=== PATIENT | female | born 1970 | race Caucasian/White ===

== ENCOUNTER 2016-09-14 09:02 | Emergency (ER) | payer OTHER ==
[~2016-09-14] VITALS: Ht 170.2 cm; Wt 110.1 kg
[~2016-09-14 09:02] MED LIST: ABILIFY15 MG PO; ACCUNEB1.25 MG/3 IH; ADIPEX-P37.5 M1 PO; ADVAIR 100-501 EACH IH; ADVAIR 250/501 DISK IH; ADVAIR HFA120 INHALA IH; ALPRAZOLAM1 MG PO; AMBIEN10 MG PO; AMBIEN5 MG PO; AMITRIPTYLINE H25 MG PO; AMOX TR-K CLV1 EAC4 PO; AMOXIL500 MG PO; ANAPROX DS550 M1 PO; ANORO ELLIPTA1 EACH IH; ANTI-DIARRHEA2 MG PO; AUGMENTIN875 MG PO; BACTROBAN OINTM22 GM TP; BELSOMRA20 MG PO; BENTYL10 MG PO; BENZONATATE100 MG PO; BREO ELLIPTA I1 EACH IH; BUPROPION XL150 MG PO; BYSTOLIC5 MG PO; CARAFATE100 MG/ML PO; CELEXA40 MG PO; CETIRIZINE HCL10 M2 PO; CHANTIX1 EACH PO; CHANTIX1 MG PO; CHERATUSSIN AC473 ML PO; CHEWABLE-VITE1 EACH PO; CIPRO500 MG PO; CLEAR EYES ITCH15 ML BOTH EYES; CYCLOBENZAPRINE10 MG PO; DELTASONE1 MG PO; DELTASONE20 M1 PO; DICYCLOMINE HCL10 MG PO; DUONEB 2.5-0.5 M3 ML AEROSOL; ENDOCET 5-3251 EACH PO; ESTRADIOL1 EA12 TD; FLAGYL500 MG PO; FLONASE16 G1 BOTH NARES; FLOVENT 11120 INHALA IH; FLUCONAZOLE100 MG PO; GABAPENTIN300 MG PO; HYDROCHLOROTH12.5 M3 PO; HYDROCODON-ACE1 EAC7 PO; IMODIUM PO; LEVAQUIN500 MG PO; LIDODERM 5% P1 PATCH TD; LOMOTIL TABLET1 EACH PO; LORTAB 5-325 M1 EACH PO; LORTAB 5-500 T1 EACH PO; LOTRIMIN AF SP150 GM TP; LYRICA150 MG PO; LYRICA50 MG PO; LYRICA75 MG PO; Levaquin PO; MEDROL DOSEPAK4 MG PO; MELATONIN5 M1 PO; METHOCARBAMOL750 MG PO; METOCLOPRAMIDE HCL; METOCLOPRAMIDE10 MG PO; MICROZIDE12.5 M1 PO; MIRAPEX1 MG PO; MORPHINE SULFAT15 MG PO; MUPIROCIN22 GM TP; MYCOSTATIN 100,60 ML PO; NAPROSYN500 MG PO; NAPROXEN500 M1 PO; NAPROXEN500 MG PO; NATURAL BALANCE15 ML BOTH EYES; NICODERM CQ1 EAC2 TD; NICOTINE PATCH1 EAC2 TD; NYSTATIN100000 UN1 PO; NYSTATIN15 GM TP; ONDANSETRON4 MG/2 ML IV; OXYCODONE HCL5 MG PO; OXYCODONE-APAP1 EACH PO; PERCOCET 5/31 TABLET PO; PERCOCET 7.51 TABLET PO; PREDNISONE10 MG PO; PREDNISONE20 MG PO; PREDNISONE50 MG PO; PRILOSEC40 MG PO; PROAIR HFA8.5 GM IH; PROMETHAZINE HC25 M1 PO; PROTONIX40 MG PO; PROVENTIL,2.5 MG/3 M IH; QUETIAPINE; QUETIAPINE FUM100 MG PO; QUETIAPINE FUM300 MG PO; RANITIDINE HCL150 MG PO; RITALIN10 MG PO; ROBAXIN750 MG PO; ROBITUSSIN AC,T10 ML PO; SEROQUEL100 MG PO; SEROQUEL200 MG PO; SOMA350 MG PO; SONATA10 MG PO; SPIRIVA RESPIMAT4 GM IH; SPIRIVA1 INHALATI IH; TESSALON PERLE100 MG PO; TOPROL XL25 MG PO; TUSSIN15 MG/5 M1 PO; TUSSIONEX PENN473 ML PO; TYLENOL WITH C1 EACH PO; Ultram PO; VIBERZI75 MG PO; VIBRAMYCIN100 MG PO; VICODIN,LORT1 TABLET PO; WELLBUTRIN XL150 MG PO; XANAX1 MG PO; XANAX2 MG PO; ZALEPLON10 MG PO; ZANAFLEX4 MG PO; ZOFRAN ODT4 MG PO; ZOFRAN4 MG PO; ZOLPIDEM TARTRA10 MG PO
[2016-09-14 09:31] LABS: EOSINOPHIL (%) 0.9 % (0-5); EOSINOPHIL COUNT 0.1 K/uL (0-0.3); HEMATOCRIT 38.1 % (36.0-46.0); IMMATURE GRANULOCYTE (%) 0.3 % (0.0-0.7); IMMATURE GRANULOCYTE COUNT 0.3 K/uL; LYMPHOCYTE COUNT 1.6 K/uL (1.0-2.8); MCH 26.4 PG (29.0-34.0); MCV 82.5 FL (83-99); MEAN PLAT.VOLUME 8.9 uM^3 (9.5-12.4); MONOCYTE (%) 3.6 % (3-12); MONOCYTE COUNT 0.4 K/uL (0-0.8); NEUTROPHIL COUNT 8.4 K/uL (1.8-6.4); PLATELET COUNT 357 K/uL (156-360); RBC DIS.WIDTH-CV 14.5 % (11.8-14.6); RBC DIS.WIDTH-SD 42.3 % (39-53); RED BLOOD COUNT 4.62 M/uL (3.80-5.20); WHITE BLOOD COUNT 10.4 K/uL (4.1-10.2)
[2016-09-14 09:40] LABS: CHLORIDE 101 mEq/L (99-109); SODIUM 135 mEq/L (136-147)
[2016-09-14 09:42] LABS: GLUCOSE 162 mg/dL (70-99)
[2016-09-14 09:43] LABS: ANION GAP 13 MEQ/L (2-14)
[2016-09-14 09:46] LABS: GFR ESTIMATE (CALCULATED) > 59 mL/min/; UREA NITROGEN (BUN) 7 mg/dL (9-23)
[2016-09-14] MEDS ORDERED: ROBITUSSIN AC,T10 ML PO (11:16)
[2016-09-14] MEDS ORDERED: CEFTIN500 MG PO (11:16)
[2016-09-14 11:22] VITALS: BP 128/89
== END 2016-09-14 11:23 | disposition home or self-care (01) ==
LOC: EME 09:02
PROVIDERS: Emergency Medicine
DX: J44.1 Chronic obstructive pulmonary disease with (acute) exacerbation (principal); J20.9 Acute bronchitis, unspecified; G89.29 Other chronic pain; F17.200 Nicotine dependence, unspecified, uncomplicated
CPT/HCPCS: 71020; 80048; 85025; 94640; 99281; 99285

== ENCOUNTER 2016-10-07 19:11 | Emergency (ER) | payer OTHER ==
[~2016-10-07] VITALS: Ht 170.2 cm; Wt 108.3 kg
[~2016-10-07 19:11] MED LIST changes: +CEFTIN500 MG PO
[2016-10-07 19:58] LABS: HEMATOCRIT 38.2 % (36.0-46.0); MCH 26.9 PG (29.0-34.0); MCHC 33.2 G/DL (30.0-36.0); MCV 80.9 FL (83-99); PLATELET COUNT 434 K/uL (156-360); RBC DIS.WIDTH-CV 14.8 % (11.8-14.6); RBC DIS.WIDTH-SD 42.4 % (39-53); RED BLOOD COUNT 4.72 M/uL (3.80-5.20)
[2016-10-07 20:03] LABS: WHITE BLOOD COUNT 16.1 K/uL (4.1-10.2)
[2016-10-07 20:09] LABS: CHLORIDE 99 mEq/L (99-109); POTASSIUM 3.7 mEq/L (3.7-5.4); SODIUM 134 mEq/L (136-147)
[2016-10-07 20:12] LABS: GLUCOSE 133 mg/dL (70-99)
[2016-10-07 20:13] LABS: ANION GAP 10 MEQ/L (2-14); TOTAL BILIRUBIN 0.2 mg/dL (0.0-1.0)
[2016-10-07 20:15] LABS: ALKALINE PHOSPHATASE 131 IU/L (3-129); GFR ESTIMATE (CALCULATED) > 59 mL/min/
[2016-10-07 20:16] LABS: UREA NITROGEN (BUN) 10 mg/dL (9-23)
[2016-10-07 20:24] LABS: QUANTITATIVE HCG < 4.0 MIU/ML
[2016-10-07 20:24] LABS: ADD MIUA? NO; BILIRUBIN NEGATIVE; BLOOD NEGATIVE; COLOR YELLOW ((YELLOW)); GLUCOSE (STRIP) NEGATIVE; KETONES NEGATIVE; LEUKOCYTES NEGATIVE; NITRITE NEGATIVE; PH, URINE 6.5 (5-8); PROTEIN (STRIP) NEGATIVE; SPECIFIC GRAVITY 1.006 (1.000-1.030); UCUL ADDED? NO; UROBILINOGEN 0.2 MG/DL (0.2-1.0)
[2016-10-07 23:01] LABS: LIPASE 25 U/L (1.0-51.0)
[2016-10-08] MEDS ORDERED: ZOFRAN4 MG PO (01:51)
[2016-10-08 02:06] VITALS: BP 151/87
== END 2016-10-08 02:09 | disposition home or self-care (01) ==
LOC: EME 19:11
DX: R10.31 Right lower quadrant pain (principal); J44.9 Chronic obstructive pulmonary disease, unspecified; K21.9 Gastro-esophageal reflux disease without esophagitis; I10 Essential (primary) hypertension; F17.200 Nicotine dependence, unspecified, uncomplicated
CPT/HCPCS: 74177; 80053; 81003; 83690; 84702; 85027; 99281; 99285; J1170; J1200; J2270; J2405; J7030

== ENCOUNTER 2016-10-31 11:56 | Inpatient (IN) | payer OTHER ==
[~2016-10-31] VITALS: Ht 170.2 cm; Wt 109.0 kg
[2016-10-31 13:28] LABS: INFLUENZA A VIRAL ANTIGEN NEGATIVE; INFLUENZA B VIRAL ANTIGEN NEGATIVE
[2016-10-31 13:32] LABS: HEMATOCRIT 37.4 % (36.0-46.0); MCH 27.1 PG (29.0-34.0); MCHC 33.4 G/DL (30.0-36.0); MEAN PLAT.VOLUME 9.1 uM^3 (9.5-12.4); PLATELET COUNT 319 K/uL (156-360); RBC DIS.WIDTH-CV 15.1 % (11.8-14.6); RED BLOOD COUNT 4.62 M/uL (3.80-5.20); WHITE BLOOD COUNT 15.3 K/uL (4.1-10.2)
[2016-10-31 13:47] LABS: CHLORIDE 100 mEq/L (99-109); POTASSIUM 4.2 mEq/L (3.7-5.4); SODIUM 136 mEq/L (136-147)
[2016-10-31 13:48] LABS: GLUCOSE 128 mg/dL (70-99)
[2016-10-31 13:50] LABS: ANION GAP 14 MEQ/L (2-14)
[2016-10-31 13:52] LABS: GFR ESTIMATE (CALCULATED) > 59 mL/min/
[2016-10-31 13:53] LABS: UREA NITROGEN (BUN) 6 mg/dL (9-23)
[2016-10-31] MEDS ORDERED: QUETIAPINE FUM200 MG PO (15:34)
[2016-10-31] MEDS ORDERED: COMBIVENT RESPIM4 GM IH (15:35)
[2016-10-31] MEDS ORDERED: BENZONATATE100 MG PO (15:37)
[2016-10-31] MEDS ORDERED: RIZATRIPTAN5 M1 PO (15:40)
[2016-10-31] MEDS ORDERED: FENTANYL1 EAC5 TD (15:40)
[2016-10-31] MEDS ORDERED: ARTIFICIAL TEAR15 M1 BOTH EYES (15:41)
[2016-10-31] MEDS ORDERED: ONE DAILY FOR1 EAC1 PO (15:42)
[2016-10-31 18:55] VITALS: BP 133/69
[2016-10-31 23:23] VITALS: BP 124/64
[2016-11-01 07:45] LABS: MCH 27.5 PG (29.0-34.0); MCV 83.5 FL (83-99); MEAN PLAT.VOLUME 9.4 uM^3 (9.5-12.4); PLATELET COUNT 330 K/uL (156-360); RBC DIS.WIDTH-SD 46.2 % (39-53); RED BLOOD COUNT 4.43 M/uL (3.80-5.20); WHITE BLOOD COUNT 19.7 K/uL (4.1-10.2)
[2016-11-01 07:59] VITALS: BP 129/72
[2016-11-01 08:00] LABS: POINT-OF-CARE METER ID UU14188625
[2016-11-01 08:11] LABS: ANION GAP 10 MEQ/L (2-14); CHLORIDE 98 MEQ/L (99-109); GFR ESTIMATE (CALCULATED) > 59 mL/min/; GLUCOSE 247 mg/dL (70-99); POTASSIUM 4.4 MEQ/L (3.7-5.4); SAMPLE HEMOLYSIS CHECK 0; SAMPLE ICTERIC CHECK 0; SAMPLE LIPEMIA CHECK 0; SODIUM 133 MEQ/L (136-147); UREA NITROGEN (BUN) 11 mg/dL (9-23)
[2016-11-01 11:57] LABS: POINT-OF-CARE METER ID UU14174225
[2016-11-01 12:48] VITALS: BP 130/73
[2016-11-01 16:28] VITALS: BP 126/69
[2016-11-01 20:00] VITALS: BP 127/67
[2016-11-02] VITALS: BP 129/65
[2016-11-02 04:00] VITALS: BP 124/64
[2016-11-02 08:00] LABS: POINT-OF-CARE METER ID UU14188625
[2016-11-02 08:09] VITALS: BP 127/72
[2016-11-02 11:59] LABS: POINT-OF-CARE METER ID UU14188625
[2016-11-02 12:16] VITALS: BP 153/80
[2016-11-02 16:14] VITALS: BP 136/76
[2016-11-02 16:53] LABS: POINT-OF-CARE METER ID UU14188625
[2016-11-02 20:00] VITALS: BP 157/74
[2016-11-02 22:42] LABS: POINT-OF-CARE METER ID UU14174225
[2016-11-03] VITALS: BP 116/63
[2016-11-03 03:45] VITALS: BP 140/91
[2016-11-03 07:41] VITALS: BP 121/75
[2016-11-03 08:28] LABS: POINT-OF-CARE METER ID UU14174225
[2016-11-03 10:40] VITALS: BP 149/95
[2016-11-03 15:56] VITALS: BP 154/81
[2016-11-03 16:39] LABS: POINT-OF-CARE METER ID UU14174225
[2016-11-03 19:30] VITALS: BP 138/82
[2016-11-04 00:18] VITALS: BP 114/65
[2016-11-04 04:00] VITALS: BP 115/77
[2016-11-04 08:33] VITALS: BP 147/79
[2016-11-04 11:50] VITALS: BP 160/90
[2016-11-04 14:56] VITALS: BP 160/75
[2016-11-04] MEDS ORDERED: ADVAIR HFA120 INHALA IH (16:28)
[2016-11-04 16:29] LABS: POINT-OF-CARE METER ID UU14174225
[2016-11-04] MEDS ORDERED: METFORMIN HCL500 M4 PO (16:31)
[2016-11-04] MEDS ORDERED: FENTANYL1 EAC1 TD (16:31)
[2016-11-04] MEDS ORDERED: PREDNISONE10 MG PO (16:31)
[2016-11-04] MEDS ORDERED: ENDOCET 5-3251 EACH PO (16:31)
[2016-11-04] MEDS ORDERED: DOXYCYCLINE HY100 M3 PO (16:44)
== END 2016-11-04 17:15 | disposition home health service (06) | DRG 192 ==
LOC: RME 11:56 → EME 11:56 → 5SOUTH 15:04 → EDOF 15:04 → 5SOUTH 17:29
PROVIDERS: Hospitalist; Internal Medicine
DX: J44.1 Chronic obstructive pulmonary disease with (acute) exacerbation (principal); E11.65 Type 2 diabetes mellitus with hyperglycemia; Z99.81 Dependence on supplemental oxygen; M79.7 Fibromyalgia; G89.4 Chronic pain syndrome; F17.210 Nicotine dependence, cigarettes, uncomplicated; M19.90 Unspecified osteoarthritis, unspecified site; K21.9 Gastro-esophageal reflux disease without esophagitis; I10 Essential (primary) hypertension; E78.5 Hyperlipidemia, unspecified; F32.9 Major depressive disorder, single episode, unspecified; F41.9 Anxiety disorder, unspecified; E66.9 Obesity, unspecified; G47.33 Obstructive sleep apnea (adult) (pediatric); K27.9 Peptic ulcer, site unspecified, unspecified as acute or chronic, without hemorrhage or perforation; G25.81 Restless legs syndrome; K58.9 Irritable bowel syndrome, unspecified
CPT/HCPCS: 71020; 80048; 82948; 85027; 87502; 93005; 94640; 94640 76; 94799; 99202; 99281; 99285; J0696; J1100; J1644; J1815; J2270; J2405; J2930; J7030; J7050

== ENCOUNTER 2016-11-11 19:44 | Emergency (ER) | payer OTHER ==
[~2016-11-11] VITALS: Ht 170.2 cm; Wt 107.7 kg
[~2016-11-11 19:44] MED LIST changes: +ARTIFICIAL TEAR15 M1 BOTH EYES; +COMBIVENT RESPIM4 GM IH; +DOXYCYCLINE HY100 M3 PO; +FENTANYL1 EAC1 TD; +FENTANYL1 EAC5 TD; +METFORMIN HCL500 M4 PO; +ONE DAILY FOR1 EAC1 PO; +QUETIAPINE FUM200 MG PO; +RIZATRIPTAN5 M1 PO
[2016-11-11 20:46] LABS: HEMATOCRIT 41.5 % (36.0-46.0); MCHC 32.8 G/DL (30.0-36.0); MCV 82.3 FL (83-99); MEAN PLAT.VOLUME 10.3 uM^3 (9.5-12.4); RBC DIS.WIDTH-CV 15.7 % (11.8-14.6); RBC DIS.WIDTH-SD 46.3 % (39-53); RED BLOOD COUNT 5.04 M/uL (3.80-5.20); WHITE BLOOD COUNT 18.7 K/uL (4.1-10.2)
[2016-11-11 20:47] LABS: PLATELET COUNT 459 K/uL (156-360)
[2016-11-11 20:58] LABS: TROP-I INTERPRETATION NEGATIVE; TROPONIN-I < 0.01 ng/mL (0.0-0.30)
[2016-11-11 21:07] LABS: CHLORIDE 101 mEq/L (99-109); POTASSIUM 4.5 mEq/L (3.7-5.4); SODIUM 138 mEq/L (136-147)
[2016-11-11 21:08] LABS: GLUCOSE 152 mg/dL (70-99)
[2016-11-11 21:10] LABS: ANION GAP 15 MEQ/L (2-14)
[2016-11-11 21:12] LABS: GFR ESTIMATE (CALCULATED) 51 mL/min/
[2016-11-11 21:13] LABS: UREA NITROGEN (BUN) 17 mg/dL (9-23)
[2016-11-11 22:32] LABS: D-DIMER ELISA < 0.15 mg/L FEU (< 0.57)
[2016-11-11 22:59] VITALS: BP 122/86
[2016-11-12] MEDS ORDERED: DOXYCYCLINE HY100 M3 PO (14:07)
[2016-11-12] MEDS ORDERED: NYSTATIN15 GM TP (14:19)
[2016-11-12] MEDS ORDERED: CETIRIZINE HCL10 M2 PO (14:35)
== END 2016-11-11 23:39 | disposition home or self-care (01) ==
LOC: EME 19:44
PROVIDERS: Emergency Medicine; Physician Assistant
DX: J44.0 Chronic obstructive pulmonary disease with (acute) lower respiratory infection (principal); J20.9 Acute bronchitis, unspecified; J44.1 Chronic obstructive pulmonary disease with (acute) exacerbation; J45.909 Unspecified asthma, uncomplicated; E11.9 Type 2 diabetes mellitus without complications; M79.7 Fibromyalgia; I10 Essential (primary) hypertension; K21.9 Gastro-esophageal reflux disease without esophagitis; F17.200 Nicotine dependence, unspecified, uncomplicated
CPT/HCPCS: 71020; 80048; 84484; 85027; 85379; 93005; 94640; 94644; 99281; 99285; J2930

== ENCOUNTER 2016-11-12 11:11 | Observation (INO) | payer OTHER ==
[~2016-11-12] VITALS: Ht 170.2 cm; Wt 115.1 kg
[2016-11-12 12:19] LABS: CARBON DIOXIDE (BICARBONATE) 23.5 MEQ/L (20-31); HEMATOCRIT 37.8 % (36.0-46.0); MCH 26.8 PG (29.0-34.0); MCHC 32.3 G/DL (30.0-36.0); MCV 82.9 FL (83-99); MEAN PLAT.VOLUME 9.3 uM^3 (9.5-12.4); PLATELET COUNT 354 K/uL (156-360); RBC DIS.WIDTH-CV 15.5 % (11.8-14.6); RBC DIS.WIDTH-SD 46.5 % (39-53); RED BLOOD COUNT 4.56 M/uL (3.80-5.20)
[2016-11-12 12:24] LABS: ADD MIUA? NO; BILIRUBIN NEGATIVE; BLOOD NEGATIVE; COLOR STRAW ((YELLOW)); GLUCOSE (STRIP) >=500; KETONES NEGATIVE; LEUKOCYTES NEGATIVE; NITRITE NEGATIVE; PROTEIN (STRIP) NEGATIVE; SPECIFIC GRAVITY 1.012 (1.000-1.030); UCUL ADDED? NO; UROBILINOGEN 0.2 MG/DL (0.2-1.0)
[2016-11-12 12:40] LABS: AMPHETAMINE NEGATIVE (500 ng/mL); BARBITURATES NEGATIVE (200 ng/mL); BENZODIAZEPINES PRESUMPTIVE POSITIVE (150 ng/mL); COCAINE NEGATIVE (150 ng/mL); INTERNAL CONTROLS VALID? YES; METHADONE NEGATIVE (200 ng/mL); METHAMPHETAMINE NEGATIVE (500 ng/mL); OPIATES (MORPHINE) PRESUMPTIVE POSITIVE (100 ng/mL); OXYCODONE NEGATIVE (100 ng/mL); PHENCYCLIDINE NEGATIVE (25 ng/mL); PROPOXYPHENE NEGATIVE (300 ng/mL); THC CANNABINOIDS PRESUMPTIVE POSITIVE (50 ng/mL); TRICYCLIC ANTIDEPRESSANTS NEGATIVE (300 ng/mL)
[2016-11-12 12:41] LABS: ADD MEDTOX COMMENT Y
[2016-11-12 12:44] LABS: BASOPHIL COUNT 0.1 K/uL (0-0.1); EOSINOPHIL (%) 0 % (0-5); IMMATURE GRANULOCYTE (%) 2.5 % (0.0-0.7); IMMATURE GRANULOCYTE COUNT 0.7 K/uL; INSTRUMENT ABS NEUTROPHIL CT 23.9 K/uL; LYMPHOCYTE COUNT 1.4 K/uL (1.0-2.8); MONOCYTE (%) 3.9 % (3-12); NEUTROPHIL (%) 88.3 % (45-76); NEUTROPHIL COUNT 23.9 K/uL (1.8-6.4)
[2016-11-12 12:51] LABS: ALKALINE PHOSPHATASE 123 IU/L (3-129); ANION GAP 14 MEQ/L (2-14); CHLORIDE 99 MEQ/L (99-109); GFR ESTIMATE (CALCULATED) > 59 mL/min/; LIPASE 12 U/L (1.0-51.0); POTASSIUM 4.7 MEQ/L (3.7-5.4); SAMPLE HEMOLYSIS CHECK 0; SAMPLE ICTERIC CHECK 0; SAMPLE LIPEMIA CHECK 0; SODIUM 134 MEQ/L (136-147); TOTAL BILIRUBIN 0.3 MG/DL (0.0-1.0); UREA NITROGEN (BUN) 18 mg/dL (9-23)
[2016-11-12 13:10] LABS: GLUCOSE 267 mg/dL (70-99)
[2016-11-12 13:11] LABS: TROP-I INTERPRETATION NEGATIVE; TROPONIN-I < 0.01 ng/mL (0.0-0.30)
[2016-11-12 13:23] LABS: BENZODIAZEPINES, URINE SCREEN POSITIVE (200 ng/mL)
[2016-11-12] MEDS ORDERED: DOXYCYCLINE HY100 M3 PO (14:07)
[2016-11-12 14:09] LABS: POINT-OF-CARE METER ID UU13113702
[2016-11-12] MEDS ORDERED: NYSTATIN15 GM TP (14:19)
[2016-11-12 14:34] LABS: INFLUENZA A VIRAL ANTIGEN NEGATIVE; INFLUENZA B VIRAL ANTIGEN NEGATIVE
[2016-11-12] MEDS ORDERED: CETIRIZINE HCL10 M2 PO (14:35)
[2016-11-12 16:33] VITALS: BP 106/62
[2016-11-12 17:38] LABS: POINT-OF-CARE METER ID UU13113831
[2016-11-12 19:34] LABS: TROP-I INTERPRETATION NEGATIVE; TROPONIN-I < 0.01 ng/mL (0.0-0.30)
[2016-11-12 19:43] VITALS: BP 125/60
[2016-11-14 08:02] LABS: POINT-OF-CARE METER ID UU13113702
== END 2016-11-12 21:45 | disposition left against medical advice (07) ==
LOC: EME → EDBD 11:11 → EDOF 14:03 → 5WEST 16:08
PROVIDERS: Emergency Medicine; Internal Medicine; Physician Assistant
DX: R07.89 Other chest pain (principal); R05 Cough; E11.65 Type 2 diabetes mellitus with hyperglycemia; J44.9 Chronic obstructive pulmonary disease, unspecified; I10 Essential (primary) hypertension; E78.5 Hyperlipidemia, unspecified; M79.7 Fibromyalgia; F41.9 Anxiety disorder, unspecified; F32.9 Major depressive disorder, single episode, unspecified; F17.200 Nicotine dependence, unspecified, uncomplicated
CPT/HCPCS: 71010; 80048; 80076; 81003; 82803; 82948; 83690; 84484; 84999; 85025; 87502; 93005; 94640; 99281; 99285; G0378; J1644; J2270; J2405; J7030

== ENCOUNTER 2016-12-08 10:26 | Emergency (ER) | payer OTHER ==
[~2016-12-08] VITALS: Ht 170.2 cm; Wt 106.5 kg
[2016-12-08 11:16] LABS: HEMATOCRIT 40.6 % (36.0-46.0); MCH 27.3 PG (29.0-34.0); MCHC 32.8 G/DL (30.0-36.0); MCV 83.2 FL (83-99); MEAN PLAT.VOLUME 9.1 uM^3 (9.5-12.4); PLATELET COUNT 363 K/uL (156-360); RBC DIS.WIDTH-CV 15.2 % (11.8-14.6); RBC DIS.WIDTH-SD 46.1 % (39-53); RED BLOOD COUNT 4.88 M/uL (3.80-5.20); WHITE BLOOD COUNT 14.5 K/uL (4.1-10.2)
[2016-12-08 11:19] LABS: CHLORIDE 99 mEq/L (99-109); SODIUM 136 mEq/L (136-147)
[2016-12-08 11:21] LABS: GLUCOSE 112 mg/dL (70-99)
[2016-12-08 11:22] LABS: ANION GAP 14 MEQ/L (2-14)
[2016-12-08 11:25] LABS: GFR ESTIMATE (CALCULATED) > 59 mL/min/
[2016-12-08 11:26] LABS: UREA NITROGEN (BUN) 9 mg/dL (9-23)
[2016-12-08 11:31] LABS: TROP-I INTERPRETATION NEGATIVE; TROPONIN-I < 0.01 ng/mL (0.0-0.30)
[2016-12-08 13:10] VITALS: BP 120/62
[2016-12-08] MEDS ORDERED: CEFTIN500 MG PO (14:33)
== END 2016-12-08 15:05 | disposition left against medical advice (07) ==
LOC: EME 10:26
DX: J44.1 Chronic obstructive pulmonary disease with (acute) exacerbation (principal); J20.9 Acute bronchitis, unspecified; J45.909 Unspecified asthma, uncomplicated; R00.0 Tachycardia, unspecified; I10 Essential (primary) hypertension; F17.200 Nicotine dependence, unspecified, uncomplicated
CPT/HCPCS: 71020; 71275; 80048; 84484; 85027; 93005; 94640; 99281; 99285; J1200; J2270; J2930

== ENCOUNTER 2016-12-21 18:49 | Observation (INO) | payer OTHER ==
[~2016-12-21] VITALS: Ht 170.2 cm; Wt 108.0 kg
[2016-12-21 21:05] LABS: EOSINOPHIL (%) 1.2 % (0-5); EOSINOPHIL COUNT 0.2 K/uL (0-0.3); HEMATOCRIT 37.6 % (36.0-46.0); IMMATURE GRANULOCYTE (%) 0.8 % (0.0-0.7); IMMATURE GRANULOCYTE COUNT 0.1 K/uL; INSTRUMENT ABS NEUTROPHIL CT 9.6 K/uL; LYMPHOCYTE COUNT 3.1 K/uL (1.0-2.8); MCH 27.4 PG (29.0-34.0); MEAN PLAT.VOLUME 8.9 uM^3 (9.5-12.4); MONOCYTE (%) 4.3 % (3-12); MONOCYTE COUNT 0.6 K/uL (0-0.8); NEUTROPHIL (%) 70.5 % (45-76); NEUTROPHIL COUNT 9.6 K/uL (1.8-6.4); PLATELET COUNT 373 K/uL (156-360); RBC DIS.WIDTH-CV 14.8 % (11.8-14.6); RBC DIS.WIDTH-SD 45.1 % (39-53); RED BLOOD COUNT 4.53 M/uL (3.80-5.20); WHITE BLOOD COUNT 13.6 K/uL (4.1-10.2)
[2016-12-21 21:14] LABS: CHLORIDE 101 mEq/L (99-109); POTASSIUM 3.8 mEq/L (3.7-5.4); SODIUM 137 mEq/L (136-147)
[2016-12-21 21:16] LABS: GLUCOSE 88 mg/dL (70-99)
[2016-12-21 21:17] LABS: ANION GAP 12 MEQ/L (2-14)
[2016-12-21 21:18] LABS: TOTAL BILIRUBIN 0.2 mg/dL (0.0-1.0)
[2016-12-21 21:19] LABS: ALKALINE PHOSPHATASE 113 IU/L (3-129)
[2016-12-21 21:20] LABS: GFR ESTIMATE (CALCULATED) > 59 mL/min/
[2016-12-21 21:21] LABS: UREA NITROGEN (BUN) 13 mg/dL (9-23)
[2016-12-21 21:26] LABS: TROP-I INTERPRETATION NEGATIVE; TROPONIN-I < 0.01 ng/mL (0.0-0.30)
[2016-12-21 21:28] LABS: QUANTITATIVE HCG < 4.0 MIU/ML
[2016-12-21] MEDS ORDERED: ANORO ELLIPTA1 EACH IH (23:30)
[2016-12-21] MEDS ORDERED: AMARYL4 MG PO (23:30)
[2016-12-21] MEDS ORDERED: BENZONATATE100 MG PO (23:30)
[2016-12-21] MEDS ORDERED: NOVOLOG PE100 UNITS/ SC (23:31)
[2016-12-21] MEDS ORDERED: SINGULAIR10 MG PO (23:31)
[2016-12-21] MEDS ORDERED: TYLENOL W/COD1 COMB1 PO (23:31)
[2016-12-21] MEDS ORDERED: SINEQUAN25 MG PO (23:32)
[2016-12-22] VITALS: BP 108/55
[2016-12-22 01:46] LABS: POINT-OF-CARE METER ID UU13113831
[2016-12-22 03:00] VITALS: BP 108/58
[2016-12-22 04:27] LABS: HEMATOCRIT 38.9 % (36.0-46.0); MCH 27.1 PG (29.0-34.0); MCHC 32.6 G/DL (30.0-36.0); MCV 83.1 FL (83-99); MEAN PLAT.VOLUME 9.1 uM^3 (9.5-12.4); PLATELET COUNT 405 K/uL (156-360); RBC DIS.WIDTH-CV 14.6 % (11.8-14.6); RBC DIS.WIDTH-SD 44.7 % (39-53); RED BLOOD COUNT 4.68 M/uL (3.80-5.20); WHITE BLOOD COUNT 15.9 K/uL (4.1-10.2)
[2016-12-22 04:38] LABS: CHLORIDE 98 mEq/L (99-109); POTASSIUM 3.8 mEq/L (3.7-5.4); SODIUM 133 mEq/L (136-147)
[2016-12-22 04:42] LABS: ANION GAP 15 MEQ/L (2-14)
[2016-12-22 04:44] LABS: ALKALINE PHOSPHATASE 119 IU/L (3-129); GFR ESTIMATE (CALCULATED) > 59 mL/min/
[2016-12-22 04:45] LABS: UREA NITROGEN (BUN) 13 mg/dL (9-23)
[2016-12-22 04:49] LABS: TROP-I INTERPRETATION NEGATIVE; TROPONIN-I < 0.01 ng/mL (0.0-0.30)
[2016-12-22 04:58] LABS: GLUCOSE 285 mg/dL (70-99); TOTAL BILIRUBIN 0.5 mg/dL (0.0-1.0)
[2016-12-22 06:03] VITALS: BP 105/57
[2016-12-22 07:42] VITALS: BP 123/58
[2016-12-22 08:08] LABS: POINT-OF-CARE METER ID UU13113831
[2016-12-22] MEDS ORDERED: MYCOSTATIN 100,60 ML PO (11:11)
[2016-12-22] MEDS ORDERED: PREDNISONE10 MG PO (11:11)
[2016-12-22] MEDS ORDERED: LEVOFLOXACIN750 MG PO (11:11)
[2016-12-22 11:42] VITALS: BP 121/63
[2016-12-22 11:42] LABS: TROP-I INTERPRETATION NEGATIVE; TROPONIN-I < 0.01 ng/mL (0.0-0.30)
== END 2016-12-22 12:15 | disposition home health service (06) ==
LOC: EME 18:49 → 5WEST 23:19 → EDOF 23:19 → 5WEST 12-22 00:31
PROVIDERS: Emergency Medicine; Hospitalist; Internal Medicine
DX: J44.1 Chronic obstructive pulmonary disease with (acute) exacerbation (principal); I10 Essential (primary) hypertension; E11.9 Type 2 diabetes mellitus without complications; F41.9 Anxiety disorder, unspecified; F32.9 Major depressive disorder, single episode, unspecified; Z86.73 Personal history of transient ischemic attack (TIA), and cerebral infarction without residual deficits; F17.200 Nicotine dependence, unspecified, uncomplicated; B37.0 Candidal stomatitis; E66.9 Obesity, unspecified; Z68.37 Body mass index [BMI] 37.0-37.9, adult; R42 Dizziness and giddiness; G89.29 Other chronic pain
CPT/HCPCS: 36600; 71020; 80053; 82803; 82948; 83880; 84484; 84702; 85025; 85027; 87070; 87205; 93005; 94640; 94640 76; 94760; 99202; 99281; 99285; G0378; J1644; J1815; J2930; J3010

== ENCOUNTER 2016-12-28 09:53 | Inpatient (IN) | payer OTHER ==
[~2016-12-28] VITALS: Ht 170.2 cm; Wt 108.4 kg
[~2016-12-28 09:53] MED LIST changes: +AMARYL4 MG PO; +LEVOFLOXACIN750 MG PO; +NOVOLOG PE100 UNITS/ SC; +SINEQUAN25 MG PO; +SINGULAIR10 MG PO; +TYLENOL W/COD1 COMB1 PO
[2016-12-28 11:24] LABS: EOSINOPHIL (%) 0.7 % (0-5); EOSINOPHIL COUNT 0.1 K/uL (0-0.3); HEMATOCRIT 38.2 % (36.0-46.0); IMMATURE GRANULOCYTE (%) 1.2 % (0.0-0.7); IMMATURE GRANULOCYTE COUNT 0.2 K/uL; INSTRUMENT ABS NEUTROPHIL CT 11.3 K/uL; LYMPHOCYTE COUNT 3.1 K/uL (1.0-2.8); MCH 27.5 PG (29.0-34.0); MCHC 32.7 G/DL (30.0-36.0); MCV 84.1 FL (83-99); MEAN PLAT.VOLUME 9.1 uM^3 (9.5-12.4); MONOCYTE (%) 5.1 % (3-12); MONOCYTE COUNT 0.8 K/uL (0-0.8); NEUTROPHIL (%) 72.7 % (45-76); NEUTROPHIL COUNT 11.3 K/uL (1.8-6.4); PLATELET COUNT 354 K/uL (156-360); RBC DIS.WIDTH-CV 15.2 % (11.8-14.6); RBC DIS.WIDTH-SD 46.5 % (39-53); RED BLOOD COUNT 4.54 M/uL (3.80-5.20); WHITE BLOOD COUNT 15.5 K/uL (4.1-10.2)
[2016-12-28 11:35] LABS: CHLORIDE 104 mEq/L (99-109); POTASSIUM 3.8 mEq/L (3.7-5.4); SODIUM 137 mEq/L (136-147)
[2016-12-28 11:36] LABS: D-DIMER ELISA < 0.15 mg/L FEU (< 0.57)
[2016-12-28 11:38] LABS: GLUCOSE 109 mg/dL (70-99)
[2016-12-28 11:39] LABS: ANION GAP 11 MEQ/L (2-14)
[2016-12-28 11:40] LABS: TOTAL BILIRUBIN 0.3 mg/dL (0.0-1.0)
[2016-12-28 11:41] LABS: ALKALINE PHOSPHATASE 94 IU/L (3-129); GFR ESTIMATE (CALCULATED) > 59 mL/min/
[2016-12-28 11:42] LABS: UREA NITROGEN (BUN) 8 mg/dL (9-23)
[2016-12-28 11:43] LABS: DIRECT BILIRUBIN 0.1 mg/dL (0.0-0.3)
[2016-12-28 11:45] LABS: LIPASE 191 U/L (1.0-51.0); TROP-I INTERPRETATION NEGATIVE; TROPONIN-I < 0.01 ng/mL (0.0-0.30)
[2016-12-28 15:39] VITALS: BP 136/66
[2016-12-28 17:28] LABS: POINT-OF-CARE METER ID UU14174225
[2016-12-28 17:36] VITALS: BP 136/66
== END 2016-12-28 19:25 | disposition left against medical advice (07) | DRG 192 ==
LOC: EME 09:53 → EDOF 13:33 → 5SOUTH 15:32
PROVIDERS: Emergency Medicine; Hospitalist
DX: J44.1 Chronic obstructive pulmonary disease with (acute) exacerbation (principal); J20.9 Acute bronchitis, unspecified; J44.0 Chronic obstructive pulmonary disease with (acute) lower respiratory infection; F17.200 Nicotine dependence, unspecified, uncomplicated; E66.9 Obesity, unspecified; Z68.37 Body mass index [BMI] 37.0-37.9, adult; F32.9 Major depressive disorder, single episode, unspecified; I10 Essential (primary) hypertension; G47.33 Obstructive sleep apnea (adult) (pediatric); F41.9 Anxiety disorder, unspecified; E11.65 Type 2 diabetes mellitus with hyperglycemia
CPT/HCPCS: 71010; 80048; 80076; 82948; 83690; 84443; 84484; 85025; 85379; 93005; 94640; 94640 76; 99281; 99285; J1815; J2270; J2930; J3010; J7030

== ENCOUNTER 2016-12-30 15:35 | Emergency (ER) | payer OTHER ==
[~2016-12-30] VITALS: Ht 170.2 cm; Wt 104.3 kg
[2016-12-30 16:14] LABS: HEMATOCRIT 39.9 % (36.0-46.0); MCH 27.7 PG (29.0-34.0); MCHC 32.3 G/DL (30.0-36.0); MCV 85.6 FL (83-99); MEAN PLAT.VOLUME 9.1 uM^3 (9.5-12.4); PLATELET COUNT 388 K/uL (156-360); RBC DIS.WIDTH-CV 15.5 % (11.8-14.6); RBC DIS.WIDTH-SD 48.6 % (39-53); RED BLOOD COUNT 4.66 M/uL (3.80-5.20); WHITE BLOOD COUNT 22.6 K/uL (4.1-10.2)
[2016-12-30 16:19] LABS: CHLORIDE 101 mEq/L (99-109); POTASSIUM 4.1 mEq/L (3.7-5.4); SODIUM 136 mEq/L (136-147)
[2016-12-30 16:21] LABS: GLUCOSE 157 mg/dL (70-99)
[2016-12-30 16:22] LABS: ANION GAP 14 MEQ/L (2-14)
[2016-12-30 16:25] LABS: ALKALINE PHOSPHATASE 100 IU/L (3-129); GFR ESTIMATE (CALCULATED) > 59 mL/min/
[2016-12-30 16:26] LABS: UREA NITROGEN (BUN) 13 mg/dL (9-23)
[2016-12-30 16:28] LABS: LIPASE 9 U/L (1.0-51.0); TOTAL BILIRUBIN 0.2 mg/dL (0.0-1.0)
[2016-12-30 20:10] LABS: INFLUENZA A VIRAL ANTIGEN NEGATIVE; INFLUENZA B VIRAL ANTIGEN NEGATIVE
[2016-12-30 21:18] VITALS: BP 112/77
== END 2016-12-30 21:18 | disposition home or self-care (01) ==
LOC: EME 15:35
PROVIDERS: Emergency Medicine; Nurse Practitioner Family
DX: J40 Bronchitis, not specified as acute or chronic (principal); E11.9 Type 2 diabetes mellitus without complications; I10 Essential (primary) hypertension; Z91.040 Latex allergy status; Z88.1 Allergy status to other antibiotic agents; Z88.0 Allergy status to penicillin; Z91.041 Radiographic dye allergy status; Z88.6 Allergy status to analgesic agent; F17.200 Nicotine dependence, unspecified, uncomplicated
CPT/HCPCS: 71020; 80053; 83690; 85027; 87502; 93005; 94640; 99281; 99285; J2405; J3010; J7030

== ENCOUNTER 2017-01-14 18:58 | Observation (INO) | payer OTHER ==
[~2017-01-14] VITALS: Ht 170.2 cm; Wt 104.4 kg
[2017-01-14 20:04] LABS: HEMATOCRIT 39.8 % (36.0-46.0); MCH 27.8 PG (29.0-34.0); MCHC 33.2 G/DL (30.0-36.0); MEAN PLAT.VOLUME 9.3 uM^3 (9.5-12.4); PLATELET COUNT 378 K/uL (156-360); RBC DIS.WIDTH-CV 14.5 % (11.8-14.6); RBC DIS.WIDTH-SD 44.4 % (39-53); RED BLOOD COUNT 4.74 M/uL (3.80-5.20)
[2017-01-14 20:14] LABS: CHLORIDE 101 mEq/L (99-109); GLUCOSE 123 mg/dL (70-99); POTASSIUM 3.8 mEq/L (3.7-5.4); SODIUM 135 mEq/L (136-147)
[2017-01-14 20:15] LABS: WHITE BLOOD COUNT 13.3 K/uL (4.1-10.2)
[2017-01-14 20:17] LABS: ANION GAP 13 MEQ/L (2-14); GFR ESTIMATE (CALCULATED) > 59 mL/min/
[2017-01-14 20:18] LABS: UREA NITROGEN (BUN) 8 mg/dL (9-23)
[2017-01-14 20:38] LABS: TROP-I INTERPRETATION NEGATIVE; TROPONIN-I < 0.01 ng/mL (0.0-0.30)
[2017-01-14 20:43] LABS: D-DIMER ELISA < 0.15 mg/L FEU (< 0.57)
[2017-01-14] MEDS ORDERED: DELTASONE20 M1 PO ×2 (22:03→22:04)
[2017-01-14] MEDS ORDERED: DOXYCYCLINE MO100 MG PO (22:04)
[2017-01-14] MEDS ORDERED: ZYRTEC10 M3 PO (22:05)
[2017-01-14] MEDS ORDERED: MAXALT10 MG PO (22:05)
[2017-01-14] MEDS ORDERED: CITALOPRAM HBR40 MG PO (22:05)
[2017-01-14] MEDS ORDERED: GUAIFENESIN AC473 ML PO (22:05)
[2017-01-14] MEDS ORDERED: OMEPRAZOLE20 MG PO (22:05)
[2017-01-14] MEDS ORDERED: DOXEPIN HCL25 MG PO (22:06)
[2017-01-15 03:51] VITALS: BP 119/54
[2017-01-15 08:06] LABS: POINT-OF-CARE METER ID UU14162513
[2017-01-15 08:20] VITALS: BP 136/64; BP 88/54
[2017-01-15 09:18] LABS: EOSINOPHIL (%) 0 % (0-5); HEMATOCRIT 38.2 % (36.0-46.0); IMMATURE GRANULOCYTE (%) 1.1 % (0.0-0.7); IMMATURE GRANULOCYTE COUNT 0.1 K/uL; LYMPHOCYTE COUNT 0.7 K/uL (1.0-2.8); MCH 27.3 PG (29.0-34.0); MCHC 32.2 G/DL (30.0-36.0); MCV 84.7 FL (83-99); MEAN PLAT.VOLUME 9.5 uM^3 (9.5-12.4); MONOCYTE (%) 0.5 % (3-12); MONOCYTE COUNT 0.1 K/uL (0-0.8); NEUTROPHIL (%) 91.7 % (45-76); PLATELET COUNT 365 K/uL (156-360); RBC DIS.WIDTH-CV 14.2 % (11.8-14.6); RBC DIS.WIDTH-SD 43.9 % (39-53); RED BLOOD COUNT 4.51 M/uL (3.80-5.20); WHITE BLOOD COUNT 10.9 K/uL (4.1-10.2)
[2017-01-15 09:30] LABS: CHLORIDE 99 mEq/L (99-109); POTASSIUM 4.5 mEq/L (3.7-5.4); SODIUM 132 mEq/L (136-147)
[2017-01-15 09:33] LABS: ANION GAP 13 MEQ/L (2-14)
[2017-01-15 09:36] LABS: GFR ESTIMATE (CALCULATED) > 59 mL/min/; UREA NITROGEN (BUN) 13 mg/dL (9-23)
[2017-01-15 09:37] LABS: GLUCOSE 295 mg/dL (70-99)
[2017-01-15 09:39] LABS: TROP-I INTERPRETATION NEGATIVE; TROPONIN-I < 0.01 ng/mL (0.0-0.30)
[2017-01-15 11:21] VITALS: BP 149/65
[2017-01-15] MEDS ORDERED: NICOTINE PATCH1 EAC2 TD (11:46)
[2017-01-15] MEDS ORDERED: DELTASONE20 M1 PO (11:46)
== END 2017-01-15 12:26 | disposition home or self-care (01) ==
LOC: EME 18:58 → 5WEST 22:09 → EDOF 22:09 → 5WEST 23:10
PROVIDERS: Emergency Medicine; Hospitalist; Student in an Organized Health Care Education/Training Program
DX: J44.1 Chronic obstructive pulmonary disease with (acute) exacerbation (principal); J44.0 Chronic obstructive pulmonary disease with (acute) lower respiratory infection; J20.9 Acute bronchitis, unspecified; Z99.81 Dependence on supplemental oxygen; M54.5 Low back pain; F17.200 Nicotine dependence, unspecified, uncomplicated; F32.9 Major depressive disorder, single episode, unspecified; E78.5 Hyperlipidemia, unspecified; E11.9 Type 2 diabetes mellitus without complications; K58.9 Irritable bowel syndrome, unspecified; M79.7 Fibromyalgia; G25.81 Restless legs syndrome; E66.9 Obesity, unspecified; F41.1 Generalized anxiety disorder; K86.1 Other chronic pancreatitis; Z68.36 Body mass index [BMI] 36.0-36.9, adult; D72.828 Other elevated white blood cell count; T38.0X5A Adverse effect of glucocorticoids and synthetic analogues, initial encounter
CPT/HCPCS: 71020; 80048; 82948; 83880; 84484; 85025; 85027; 85379; 93005; 94640; 94640 76; 99202; 99281; 99284; G0378; J1200; J1650; J1815; J1885; J2270; J2405; J2765; J2930

== ENCOUNTER 2017-01-28 10:37 | Emergency (ER) | payer OTHER ==
[~2017-01-28] VITALS: Ht 172.7 cm; Wt 104.8 kg
[~2017-01-28 10:37] MED LIST changes: +CITALOPRAM HBR40 MG PO; +DOXEPIN HCL25 MG PO; +DOXYCYCLINE MO100 MG PO; +GUAIFENESIN AC473 ML PO; +MAXALT10 MG PO; +OMEPRAZOLE20 MG PO; +ZYRTEC10 M3 PO
[2017-01-28 10:46] VITALS: BP 106/90
[2017-01-29] MEDS ORDERED: MEDROL DOSEPAK4 MG PO (06:11)
[2017-01-29] MEDS ORDERED: PERCOCET 5/31 TABLET PO (06:11)
[2017-01-29] MEDS ORDERED: VALIUM2 MG PO (06:11)
== END 2017-01-28 11:10 | disposition left against medical advice (07) ==
LOC: EME 10:37
DX: M54.9 Dorsalgia, unspecified (principal); R29.6 Repeated falls; Z53.21 Procedure and treatment not carried out due to patient leaving prior to being seen by health care provider

== ENCOUNTER 2017-01-29 04:48 | Emergency (ER) | payer OTHER ==
[~2017-01-29] VITALS: Ht 170.2 cm; Wt 106.4 kg
[2017-01-29] MEDS ORDERED: MEDROL DOSEPAK4 MG PO (06:11)
[2017-01-29] MEDS ORDERED: VALIUM2 MG PO (06:11)
[2017-01-29] MEDS ORDERED: PERCOCET 5/31 TABLET PO (06:11)
[2017-01-29 06:24] VITALS: BP 134/85
== END 2017-01-29 06:25 | disposition home or self-care (01) ==
LOC: EME 04:48
DX: G89.29 Other chronic pain (principal); M54.41 Lumbago with sciatica, right side; F17.200 Nicotine dependence, unspecified, uncomplicated; Z91.040 Latex allergy status; Z88.1 Allergy status to other antibiotic agents; Z91.041 Radiographic dye allergy status; Z88.0 Allergy status to penicillin; Z88.6 Allergy status to analgesic agent; Z88.5 Allergy status to narcotic agent; Z88.8 Allergy status to other drugs, medicaments and biological substances; J45.909 Unspecified asthma, uncomplicated; E11.9 Type 2 diabetes mellitus without complications; J44.9 Chronic obstructive pulmonary disease, unspecified; I10 Essential (primary) hypertension; K21.9 Gastro-esophageal reflux disease without esophagitis; Z79.84 Long term (current) use of oral hypoglycemic drugs
CPT/HCPCS: 99281; 99284; J1100; J2270

== ENCOUNTER 2017-02-06 03:00 | Emergency (ER) | payer OTHER ==
[~2017-02-06] VITALS: Ht 170.2 cm; Wt 110.4 kg
[~2017-02-06 03:00] MED LIST changes: +VALIUM2 MG PO
[2017-02-06] MEDS ORDERED: HYCODAN SYRUP480 ML PO (05:02)
[2017-02-06 05:06] VITALS: BP 153/89
== END 2017-02-06 05:21 | disposition home or self-care (01) ==
LOC: EME 03:00
DX: J44.9 Chronic obstructive pulmonary disease, unspecified (principal); I10 Essential (primary) hypertension; J45.909 Unspecified asthma, uncomplicated; E11.9 Type 2 diabetes mellitus without complications; M79.7 Fibromyalgia; K21.9 Gastro-esophageal reflux disease without esophagitis; F17.200 Nicotine dependence, unspecified, uncomplicated; Z79.4 Long term (current) use of insulin
CPT/HCPCS: 71010; 93005; 94640; 94640 76; 99281; 99284

== ENCOUNTER 2017-02-24 15:10 | Emergency (ER) | payer OTHER ==
[~2017-02-24] VITALS: Ht 170.2 cm; Wt 107.0 kg
[~2017-02-24 15:10] MED LIST changes: +HYCODAN SYRUP480 ML PO
[2017-02-24 16:43] LABS: HEMATOCRIT 37.5 % (36.0-46.0); MCH 28.1 PG (29.0-34.0); MCHC 33.1 G/DL (30.0-36.0); MCV 84.8 FL (83-99); MEAN PLAT.VOLUME 8.9 uM^3 (9.5-12.4); PLATELET COUNT 328 K/uL (156-360); RBC DIS.WIDTH-CV 13.2 % (11.8-14.6); RBC DIS.WIDTH-SD 40.8 % (39-53); RED BLOOD COUNT 4.42 M/uL (3.80-5.20); WHITE BLOOD COUNT 11.9 K/uL (4.1-10.2)
[2017-02-24 16:54] LABS: CHLORIDE 99 mEq/L (99-109); D-DIMER ELISA < 0.15 mg/L FEU (< 0.57); POTASSIUM 3.8 mEq/L (3.7-5.4); SODIUM 137 mEq/L (136-147)
[2017-02-24 16:56] LABS: GLUCOSE 106 mg/dL (70-99)
[2017-02-24 16:57] LABS: ANION GAP 11 MEQ/L (2-14)
[2017-02-24 17:00] LABS: GFR ESTIMATE (CALCULATED) > 59 mL/min/
[2017-02-24 17:01] LABS: UREA NITROGEN (BUN) 7 mg/dL (9-23)
[2017-02-24] MEDS ORDERED: PREDNISONE20 MG PO (17:35)
[2017-02-24] MEDS ORDERED: PERCOCET 5/31 TABLET PO (17:36)
[2017-02-24 18:01] VITALS: BP 104/78
== END 2017-02-24 18:02 | disposition home or self-care (01) ==
LOC: EME 15:10
PROVIDERS: Physician Assistant
DX: J44.1 Chronic obstructive pulmonary disease with (acute) exacerbation (principal); M79.7 Fibromyalgia; K21.9 Gastro-esophageal reflux disease without esophagitis; I10 Essential (primary) hypertension; E11.9 Type 2 diabetes mellitus without complications; Z90.49 Acquired absence of other specified parts of digestive tract; F17.200 Nicotine dependence, unspecified, uncomplicated
CPT/HCPCS: 71020; 80048; 85027; 85379; 93005; 94640; 99281; 99285; J2930; J7030

== ENCOUNTER 2017-02-25 13:25 | Observation (INO) | payer OTHER ==
[~2017-02-25] VITALS: Ht 170.2 cm; Wt 107.0 kg
[2017-02-25 15:11] LABS: CHLORIDE 99 mEq/L (99-109); POTASSIUM 4.2 mEq/L (3.7-5.4); SODIUM 134 mEq/L (136-147)
[2017-02-25 15:13] LABS: GLUCOSE 195 mg/dL (70-99)
[2017-02-25 15:14] LABS: ANION GAP 12 MEQ/L (2-14)
[2017-02-25 15:15] LABS: EOSINOPHIL (%) 0 % (0-5); HEMATOCRIT 37.8 % (36.0-46.0); IMMATURE GRANULOCYTE (%) 0.7 % (0.0-0.7); IMMATURE GRANULOCYTE COUNT 0.2 K/uL; INSTRUMENT ABS NEUTROPHIL CT 21.3 K/uL; MCH 27.8 PG (29.0-34.0); MCHC 33.1 G/DL (30.0-36.0); MCV 84.2 FL (83-99); MEAN PLAT.VOLUME 9.2 uM^3 (9.5-12.4); MONOCYTE (%) 0.8 % (3-12); MONOCYTE COUNT 0.2 K/uL (0-0.8); NEUTROPHIL (%) 94.1 % (45-76); NEUTROPHIL COUNT 21.3 K/uL (1.8-6.4); PLATELET COUNT 363 K/uL (156-360); RBC DIS.WIDTH-CV 13.2 % (11.8-14.6); RBC DIS.WIDTH-SD 41.1 % (39-53); RED BLOOD COUNT 4.49 M/uL (3.80-5.20); WHITE BLOOD COUNT 22.7 K/uL (4.1-10.2)
[2017-02-25 15:16] LABS: GFR ESTIMATE (CALCULATED) > 59 mL/min/
[2017-02-25 15:17] LABS: UREA NITROGEN (BUN) 11 mg/dL (9-23)
[2017-02-25 17:43] VITALS: BP 127/91
== END 2017-02-25 17:35 | disposition left against medical advice (07) ==
LOC: EME 13:25 → EDOF 16:51
PROVIDERS: Emergency Medicine
DX: J44.1 Chronic obstructive pulmonary disease with (acute) exacerbation (principal); Z99.81 Dependence on supplemental oxygen
CPT/HCPCS: 71010; 80048; 83880; 85025; 93005; 94640; 99202; 99281; 99285; G0378; J2930

== ENCOUNTER 2017-03-13 01:49 | Emergency (ER) | payer OTHER ==
[~2017-03-13] VITALS: Ht 170.2 cm; Wt 104.6 kg
[2017-03-13 02:27] LABS: HEMATOCRIT 38.5 % (36.0-46.0); MCH 28.2 PG (29.0-34.0); MCHC 33.5 G/DL (30.0-36.0); MCV 84.2 FL (83-99); MEAN PLAT.VOLUME 8.8 uM^3 (9.5-12.4); PLATELET COUNT 338 K/uL (156-360); RBC DIS.WIDTH-CV 13.2 % (11.8-14.6); RED BLOOD COUNT 4.57 M/uL (3.80-5.20); WHITE BLOOD COUNT 12.8 K/uL (4.1-10.2)
[2017-03-13 02:36] LABS: CHLORIDE 100 mEq/L (99-109); POTASSIUM 3.4 mEq/L (3.7-5.4); SODIUM 136 mEq/L (136-147)
[2017-03-13 02:38] LABS: GLUCOSE 164 mg/dL (70-99)
[2017-03-13 02:39] LABS: ANION GAP 13 MEQ/L (2-14)
[2017-03-13 02:42] LABS: GFR ESTIMATE (CALCULATED) > 59 mL/min/
[2017-03-13 02:43] LABS: UREA NITROGEN (BUN) 7 mg/dL (9-23)
[2017-03-13 04:02] LABS: TROP-I INTERPRETATION NEGATIVE; TROPONIN-I < 0.01 ng/mL (0.0-0.30)
[2017-03-13] MEDS ORDERED: PREDNISONE50 MG PO (04:23)
[2017-03-13 05:50] VITALS: BP 118/94
== END 2017-03-13 05:50 | disposition home or self-care (01) ==
LOC: EME 01:49
PROVIDERS: Emergency Medicine
DX: J44.1 Chronic obstructive pulmonary disease with (acute) exacerbation (principal); F17.200 Nicotine dependence, unspecified, uncomplicated; Z88.0 Allergy status to penicillin; Z91.040 Latex allergy status; Z79.4 Long term (current) use of insulin; M79.7 Fibromyalgia; K21.9 Gastro-esophageal reflux disease without esophagitis; I10 Essential (primary) hypertension; F32.9 Major depressive disorder, single episode, unspecified; E11.9 Type 2 diabetes mellitus without complications
CPT/HCPCS: 71020; 80048; 84484; 85027; 93005; 94644; 99281; 99284

== ENCOUNTER 2017-03-18 17:18 | Emergency (ER) | payer OTHER ==
[~2017-03-18] VITALS: Ht 170.2 cm; Wt 110.9 kg
[2017-03-18 18:16] LABS: HEMATOCRIT 39.7 % (36.0-46.0); MCH 28.2 PG (29.0-34.0); MCHC 33.8 G/DL (30.0-36.0); MCV 83.4 FL (83-99); MEAN PLAT.VOLUME 9.1 uM^3 (9.5-12.4); PLATELET COUNT 407 K/uL (156-360); RBC DIS.WIDTH-SD 39.8 % (39-53); RED BLOOD COUNT 4.76 M/uL (3.80-5.20); WHITE BLOOD COUNT 16.4 K/uL (4.1-10.2)
[2017-03-18 18:27] LABS: CHLORIDE 100 mEq/L (99-109); POTASSIUM 3.6 mEq/L (3.7-5.4); SODIUM 134 mEq/L (136-147)
[2017-03-18 18:29] LABS: GLUCOSE 145 mg/dL (70-99)
[2017-03-18 18:31] LABS: ANION GAP 11 MEQ/L (2-14); TOTAL BILIRUBIN 0.3 mg/dL (0.0-1.0)
[2017-03-18 18:32] LABS: ALKALINE PHOSPHATASE 137 IU/L (3-129)
[2017-03-18 18:33] LABS: GFR ESTIMATE (CALCULATED) > 59 mL/min/
[2017-03-18 18:34] LABS: UREA NITROGEN (BUN) 8 mg/dL (9-23)
[2017-03-18] MEDS ORDERED: PERCOCET 5/31 TABLET PO (20:25)
[2017-03-18] MEDS ORDERED: VALIUM5 MG PO (20:25)
[2017-03-18] MEDS ORDERED: PHENERGAN1.25 MG/ML PO (20:28)
[2017-03-18 21:06] VITALS: BP 129/96
== END 2017-03-18 21:08 | disposition home or self-care (01) ==
LOC: EME 17:18
DX: J44.1 Chronic obstructive pulmonary disease with (acute) exacerbation (principal); G89.29 Other chronic pain; M54.9 Dorsalgia, unspecified; F17.200 Nicotine dependence, unspecified, uncomplicated; K21.9 Gastro-esophageal reflux disease without esophagitis; E11.9 Type 2 diabetes mellitus without complications; I10 Essential (primary) hypertension; Z91.040 Latex allergy status; Z88.1 Allergy status to other antibiotic agents; Z88.0 Allergy status to penicillin; Z91.041 Radiographic dye allergy status; Z90.49 Acquired absence of other specified parts of digestive tract; Z79.4 Long term (current) use of insulin
CPT/HCPCS: 71020; 80053; 85027; 94640; 99281; 99284; J3010

== ENCOUNTER 2017-04-10 12:35 | Observation (INO) | payer OTHER ==
[~2017-04-10] VITALS: Ht 170.2 cm; Wt 106.9 kg
[~2017-04-10 12:35] MED LIST changes: +PHENERGAN1.25 MG/ML PO; +VALIUM5 MG PO
[2017-04-10 14:04] LABS: HEMATOCRIT 37.5 % (36.0-46.0); MCH 27.9 PG (29.0-34.0); MCHC 33.3 G/DL (30.0-36.0); MCV 83.7 FL (83-99); MEAN PLAT.VOLUME 9.4 uM^3 (9.5-12.4); PLATELET COUNT 314 K/uL (156-360); RBC DIS.WIDTH-CV 12.9 % (11.8-14.6); RBC DIS.WIDTH-SD 39.1 % (39-53); RED BLOOD COUNT 4.48 M/uL (3.80-5.20); WHITE BLOOD COUNT 13.1 K/uL (4.1-10.2)
[2017-04-10 14:12] LABS: D-DIMER ELISA < 150.00 ng/mLDDU (<230)
[2017-04-10 14:16] LABS: CHLORIDE 101 mEq/L (99-109); POTASSIUM 3.9 mEq/L (3.7-5.4); SODIUM 138 mEq/L (136-147)
[2017-04-10 14:17] LABS: GLUCOSE 119 mg/dL (70-99)
[2017-04-10 14:19] LABS: ANION GAP 12 MEQ/L (2-14)
[2017-04-10 14:21] LABS: GFR ESTIMATE (CALCULATED) > 59 mL/min/
[2017-04-10 14:22] LABS: UREA NITROGEN (BUN) 11 mg/dL (9-23)
[2017-04-10 14:25] LABS: TROP-I INTERPRETATION NEGATIVE; TROPONIN-I < 0.01 ng/mL (0.0-0.30)
[2017-04-10 14:29] LABS: QUANTITATIVE HCG < 4.0 MIU/ML
[2017-04-10 16:45] VITALS: BP 122/58
[2017-04-10] MEDS ORDERED: CHANTIX1 MG PO (18:03)
[2017-04-10] MEDS ORDERED: BUSPAR10 MG PO (18:03)
[2017-04-10] MEDS ORDERED: METHOCARBAMOL750 MG PO (18:04)
[2017-04-10 18:30] VITALS: BP 140/76
[2017-04-10 19:35] LABS: TROP-I INTERPRETATION NEGATIVE; TROPONIN-I < 0.01 ng/mL (0.0-0.30)
[2017-04-10 23:33] VITALS: BP 110/61
[2017-04-11 01:54] LABS: TROP-I INTERPRETATION NEGATIVE; TROPONIN-I < 0.01 ng/mL (0.0-0.30)
[2017-04-11 04:11] VITALS: BP 134/67
[2017-04-11 05:47] LABS: HEMATOCRIT 36.3 % (36.0-46.0); MCH 29.3 PG (29.0-34.0); MCHC 34.2 G/DL (30.0-36.0); MCV 85.8 FL (83-99); MEAN PLAT.VOLUME 9.2 uM^3 (9.5-12.4); PLATELET COUNT 312 K/uL (156-360); RBC DIS.WIDTH-CV 13.1 % (11.8-14.6); RBC DIS.WIDTH-SD 40.4 % (39-53); RED BLOOD COUNT 4.23 M/uL (3.80-5.20); WHITE BLOOD COUNT 10.7 K/uL (4.1-10.2)
[2017-04-11 06:20] LABS: ANION GAP 7 MEQ/L (2-14); CHLORIDE 100 MEQ/L (99-109); GFR ESTIMATE (CALCULATED) > 59 mL/min/; GLUCOSE 153 mg/dL (70-99); POTASSIUM 4.3 MEQ/L (3.7-5.4); SAMPLE HEMOLYSIS CHECK 0; SAMPLE ICTERIC CHECK 0; SAMPLE LIPEMIA CHECK 0; SODIUM 138 MEQ/L (136-147); UREA NITROGEN (BUN) 15 mg/dL (9-23)
[2017-04-11 07:06] VITALS: BP 114/63
[2017-04-11] MEDS ORDERED: PREDNISONE20 MG PO (09:48)
== END 2017-04-11 10:36 | disposition home or self-care (01) ==
LOC: EME → EDBD 12:35 → EME 12:35 → EDOF 15:57 → ENRESERV 15:58 → 5WEST 16:48
PROVIDERS: Emergency Medicine; Hospitalist
DX: E27.40 Unspecified adrenocortical insufficiency (principal); R55 Syncope and collapse; R07.9 Chest pain, unspecified; J44.9 Chronic obstructive pulmonary disease, unspecified; G89.29 Other chronic pain; M54.5 Low back pain; M54.16 Radiculopathy, lumbar region; F32.9 Major depressive disorder, single episode, unspecified; F41.9 Anxiety disorder, unspecified; I10 Essential (primary) hypertension; R11.0 Nausea; E11.65 Type 2 diabetes mellitus with hyperglycemia; D72.829 Elevated white blood cell count, unspecified; E66.9 Obesity, unspecified; Z68.36 Body mass index [BMI] 36.0-36.9, adult; K21.9 Gastro-esophageal reflux disease without esophagitis; E78.5 Hyperlipidemia, unspecified; F17.200 Nicotine dependence, unspecified, uncomplicated; F12.10 Cannabis abuse, uncomplicated; Z88.1 Allergy status to other antibiotic agents; Z88.6 Allergy status to analgesic agent; Z88.8 Allergy status to other drugs, medicaments and biological substances; Z91.040 Latex allergy status
CPT/HCPCS: 71010; 80048; 82533 91; 84484; 84702; 85027; 85379; 93005; 94640; 94799; 99202; 99281; 99285; G0378; J1650; J7030

== ENCOUNTER 2017-04-27 15:26 | Emergency (ER) | payer OTHER ==
[~2017-04-27] VITALS: Ht 170.2 cm; Wt 106.6 kg
[~2017-04-27 15:26] MED LIST changes: +BUSPAR10 MG PO
[2017-04-27 16:47] LABS: ADD MIUA? NO; BILIRUBIN NEGATIVE; BLOOD NEGATIVE; COLOR STRAW ((YELLOW)); GLUCOSE (STRIP) NEGATIVE; KETONES NEGATIVE; LEUKOCYTES NEGATIVE; NITRITE NEGATIVE; PROTEIN (STRIP) NEGATIVE; SPECIFIC GRAVITY 1.008 (1.000-1.030); UROBILINOGEN 0.2 MG/DL (0.2-1.0)
[2017-04-27 17:09] LABS: EOSINOPHIL COUNT 0.1 K/uL (0-0.3); HEMATOCRIT 37.4 % (36.0-46.0); IMMATURE GRANULOCYTE (%) 0.6 % (0.0-0.7); IMMATURE GRANULOCYTE COUNT 0.1 K/uL; INSTRUMENT ABS NEUTROPHIL CT 8.9 K/uL; MCH 28.3 PG (29.0-34.0); MCHC 33.7 G/DL (30.0-36.0); MEAN PLAT.VOLUME 9.2 uM^3 (9.5-12.4); MONOCYTE (%) 4.1 % (3-12); MONOCYTE COUNT 0.5 K/uL (0-0.8); NEUTROPHIL (%) 76.6 % (45-76); NEUTROPHIL COUNT 8.9 K/uL (1.8-6.4); PLATELET COUNT 352 K/uL (156-360); RBC DIS.WIDTH-CV 12.7 % (11.8-14.6); RBC DIS.WIDTH-SD 38.7 % (39-53); RED BLOOD COUNT 4.45 M/uL (3.80-5.20); WHITE BLOOD COUNT 11.6 K/uL (4.1-10.2)
[2017-04-27 17:18] LABS: CHLORIDE 103 mEq/L (99-109); POTASSIUM 3.6 mEq/L (3.7-5.4); SODIUM 138 mEq/L (136-147)
[2017-04-27 17:19] LABS: AMYLASE 85 IU/L (1-118)
[2017-04-27 17:20] LABS: GLUCOSE 130 mg/dL (70-99)
[2017-04-27 17:22] LABS: ANION GAP 10 MEQ/L (2-14); TOTAL BILIRUBIN 0.2 mg/dL (0.0-1.0)
[2017-04-27 17:24] LABS: ALKALINE PHOSPHATASE 157 IU/L (3-129); GFR ESTIMATE (CALCULATED) > 59 mL/min/
[2017-04-27 17:25] LABS: UREA NITROGEN (BUN) 6 mg/dL (9-23)
[2017-04-27 17:28] LABS: LIPASE 58 U/L (1.0-51.0)
[2017-04-27] MEDS ORDERED: BENTYL20 MG PO (19:20)
[2017-04-27] MEDS ORDERED: PHENERGAN25 MG PR (19:20)
[2017-04-27] MEDS ORDERED: PERCOCET 5/31 TABLET PO (19:20)
[2017-04-27 19:41] VITALS: BP 111/62
== END 2017-04-27 19:42 | disposition home or self-care (01) ==
LOC: EME 15:26
PROVIDERS: Physician Assistant
DX: R10.84 Generalized abdominal pain (principal); E11.9 Type 2 diabetes mellitus without complications; J44.9 Chronic obstructive pulmonary disease, unspecified; I10 Essential (primary) hypertension; K21.9 Gastro-esophageal reflux disease without esophagitis; R56.9 Unspecified convulsions; Z86.73 Personal history of transient ischemic attack (TIA), and cerebral infarction without residual deficits; F17.200 Nicotine dependence, unspecified, uncomplicated
CPT/HCPCS: 71020; 74177; 80053; 81003; 82150; 83630; 83690; 85025; 87493; 87506; 99281; 99285; J1200; J2270; J2405; J3010; J7030

== ENCOUNTER 2017-04-29 20:14 | Emergency (ER) | payer OTHER ==
[~2017-04-29] VITALS: Ht 170.2 cm; Wt 108.5 kg
[~2017-04-29 20:14] MED LIST changes: +BENTYL20 MG PO; +PHENERGAN25 MG PR
[2017-04-29 21:10] LABS: HEMATOCRIT 34.3 % (36.0-46.0); MCH 28.1 PG (29.0-34.0); MCHC 33.5 G/DL (30.0-36.0); MCV 83.9 FL (83-99); PLATELET COUNT 323 K/uL (156-360); RBC DIS.WIDTH-CV 12.6 % (11.8-14.6); RED BLOOD COUNT 4.09 M/uL (3.80-5.20); WHITE BLOOD COUNT 9.6 K/uL (4.1-10.2)
[2017-04-29 21:20] LABS: CHLORIDE 102 mEq/L (99-109); POTASSIUM 3.6 mEq/L (3.7-5.4); SODIUM 140 mEq/L (136-147)
[2017-04-29 21:23] LABS: GLUCOSE 109 mg/dL (70-99)
[2017-04-29 21:24] LABS: ANION GAP 11 MEQ/L (2-14)
[2017-04-29 21:26] LABS: ALKALINE PHOSPHATASE 139 IU/L (3-129); GFR ESTIMATE (CALCULATED) > 59 mL/min/
[2017-04-29 21:27] LABS: UREA NITROGEN (BUN) 7 mg/dL (9-23)
[2017-04-29 21:29] LABS: TOTAL BILIRUBIN 0.1 mg/dL (0.0-1.0)
[2017-04-29 21:30] LABS: LIPASE 30 U/L (1.0-51.0)
[2017-04-29 21:35] LABS: QUANTITATIVE HCG < 4.0 MIU/ML
[2017-04-29 21:50] LABS: ADD MIUA? NO; BILIRUBIN NEGATIVE; BLOOD NEGATIVE; COLOR STRAW ((YELLOW)); GLUCOSE (STRIP) NEGATIVE; KETONES NEGATIVE; LEUKOCYTES NEGATIVE; NITRITE NEGATIVE; PROTEIN (STRIP) NEGATIVE; SPECIFIC GRAVITY 1.008 (1.000-1.030); UCUL ADDED? NO; UROBILINOGEN 0.2 MG/DL (0.2-1.0)
[2017-04-29 23:38] VITALS: BP 139/75
== END 2017-04-29 23:39 | disposition home or self-care (01) ==
LOC: RME 20:14 → EME 20:14 → RME 23:39
PROVIDERS: Physician Assistant Medical
DX: R10.10 Upper abdominal pain, unspecified (principal); Z87.19 Personal history of other diseases of the digestive system; I10 Essential (primary) hypertension; E11.9 Type 2 diabetes mellitus without complications; J44.9 Chronic obstructive pulmonary disease, unspecified; K21.9 Gastro-esophageal reflux disease without esophagitis; R56.9 Unspecified convulsions; Z86.73 Personal history of transient ischemic attack (TIA), and cerebral infarction without residual deficits; F17.200 Nicotine dependence, unspecified, uncomplicated; Z88.0 Allergy status to penicillin; Z88.1 Allergy status to other antibiotic agents; Z91.040 Latex allergy status; Z88.6 Allergy status to analgesic agent
CPT/HCPCS: 80053; 81003; 83690; 84702; 85027; 99281; 99284

== ENCOUNTER 2017-05-04 16:42 | Emergency (ER) | payer OTHER ==
[~2017-05-04] VITALS: Ht 170.2 cm; Wt 106.7 kg
[2017-05-04 17:54] LABS: HEMATOCRIT 36.5 % (36.0-46.0); MCH 28.1 PG (29.0-34.0); MCHC 33.4 G/DL (30.0-36.0); MCV 84.1 FL (83-99); MEAN PLAT.VOLUME 9.1 uM^3 (9.5-12.4); PLATELET COUNT 362 K/uL (156-360); RBC DIS.WIDTH-CV 12.7 % (11.8-14.6); RBC DIS.WIDTH-SD 39.2 % (39-53); RED BLOOD COUNT 4.34 M/uL (3.80-5.20); WHITE BLOOD COUNT 12.1 K/uL (4.1-10.2)
[2017-05-04 18:00] LABS: ADD MIUA? NO; BILIRUBIN NEGATIVE; BLOOD NEGATIVE; COLOR COLORLESS ((YELLOW)); GLUCOSE (STRIP) NEGATIVE; KETONES NEGATIVE; LEUKOCYTES NEGATIVE; NITRITE NEGATIVE; PROTEIN (STRIP) NEGATIVE; SPECIFIC GRAVITY 1.003 (1.000-1.030); UCUL ADDED? NO; UROBILINOGEN 0.2 MG/DL (0.2-1.0)
[2017-05-04 18:03] LABS: CHLORIDE 103 mEq/L (99-109); SODIUM 137 mEq/L (136-147)
[2017-05-04 18:04] LABS: POTASSIUM 3.5 mEq/L (3.7-5.4)
[2017-05-04 18:06] LABS: GLUCOSE 118 mg/dL (70-99)
[2017-05-04 18:07] LABS: ANION GAP 11 MEQ/L (2-14)
[2017-05-04 18:08] LABS: TOTAL BILIRUBIN 0.2 mg/dL (0.0-1.0)
[2017-05-04 18:09] LABS: ALKALINE PHOSPHATASE 129 IU/L (3-129); GFR ESTIMATE (CALCULATED) > 59 mL/min/
[2017-05-04 18:10] LABS: UREA NITROGEN (BUN) 10 mg/dL (9-23)
[2017-05-04 18:13] LABS: LIPASE 20 U/L (1.0-51.0)
[2017-05-04 18:18] LABS: QUANTITATIVE HCG < 4.0 MIU/ML
[2017-05-04] MEDS ORDERED: BENTYL10 MG PO (19:14)
[2017-05-04 19:26] VITALS: BP 141/79
== END 2017-05-04 19:26 | disposition home or self-care (01) ==
LOC: EME 16:42
PROVIDERS: Physician Assistant Medical
DX: R10.31 Right lower quadrant pain (principal); R14.0 Abdominal distension (gaseous); R11.2 Nausea with vomiting, unspecified; R16.0 Hepatomegaly, not elsewhere classified; J44.9 Chronic obstructive pulmonary disease, unspecified; Z90.49 Acquired absence of other specified parts of digestive tract; Z90.710 Acquired absence of both cervix and uterus; F17.200 Nicotine dependence, unspecified, uncomplicated
CPT/HCPCS: 73502; 74000; 80053; 81003; 83690; 84702; 85027; 99281; 99285; J2270

== ENCOUNTER 2017-05-21 07:25 | Emergency (ER) | payer OTHER ==
[~2017-05-21] VITALS: Ht 170.2 cm; Wt 107.0 kg
[2017-05-21 08:37] LABS: HEMATOCRIT 36.3 % (36.0-46.0); MCH 28.2 PG (29.0-34.0); MCHC 33.3 G/DL (30.0-36.0); MCV 84.6 FL (83-99); MEAN PLAT.VOLUME 9.4 uM^3 (9.5-12.4); PLATELET COUNT 313 K/uL (156-360); RBC DIS.WIDTH-SD 39.9 % (39-53); RED BLOOD COUNT 4.29 M/uL (3.80-5.20); WHITE BLOOD COUNT 10.9 K/uL (4.1-10.2)
[2017-05-21 08:48] LABS: CHLORIDE 104 mEq/L (99-109); SODIUM 139 mEq/L (136-147)
[2017-05-21 08:50] LABS: GLUCOSE 134 mg/dL (70-99)
[2017-05-21 08:51] LABS: ANION GAP 13 MEQ/L (2-14)
[2017-05-21 08:52] LABS: TOTAL BILIRUBIN 0.2 mg/dL (0.0-1.0)
[2017-05-21 08:52] LABS: ADD MIUA? NO; BILIRUBIN NEGATIVE; BLOOD NEGATIVE; COLOR STRAW ((YELLOW)); GLUCOSE (STRIP) NEGATIVE; KETONES NEGATIVE; LEUKOCYTES NEGATIVE; NITRITE NEGATIVE; PROTEIN (STRIP) NEGATIVE; SPECIFIC GRAVITY 1.008 (1.000-1.030); UROBILINOGEN 0.2 MG/DL (0.2-1.0)
[2017-05-21 08:54] LABS: ALKALINE PHOSPHATASE 122 IU/L (3-129); GFR ESTIMATE (CALCULATED) > 59 mL/min/
[2017-05-21 08:55] LABS: UREA NITROGEN (BUN) 10 mg/dL (9-23)
[2017-05-21 08:57] LABS: LIPASE 31 U/L (1.0-51.0)
[2017-05-21] MEDS ORDERED: PERCOCET 5/31 TABLET PO (10:02)
[2017-05-21] MEDS ORDERED: PROMETHAZINE HC25 M1 PO (10:02)
[2017-05-21 10:12] VITALS: BP 129/72
== END 2017-05-21 10:36 | disposition home or self-care (01) ==
LOC: EME 07:25
PROVIDERS: Physician Assistant
DX: R10.10 Upper abdominal pain, unspecified (principal); R11.2 Nausea with vomiting, unspecified; R19.7 Diarrhea, unspecified; J44.9 Chronic obstructive pulmonary disease, unspecified; Z90.49 Acquired absence of other specified parts of digestive tract; Z90.710 Acquired absence of both cervix and uterus; F17.200 Nicotine dependence, unspecified, uncomplicated
CPT/HCPCS: 80053; 81003; 83690; 85027; 99281; 99285; J1200; J2270; J2405

== ENCOUNTER 2017-06-01 04:32 | Emergency (ER) | payer OTHER ==
[~2017-06-01] VITALS: Ht 170.2 cm; Wt 106.4 kg
[2017-06-01 06:01] LABS: HEMATOCRIT 39.2 % (36.0-46.0); MCH 28.1 PG (29.0-34.0); MCHC 33.2 G/DL (30.0-36.0); MCV 84.8 FL (83-99); MEAN PLAT.VOLUME 9.1 uM^3 (9.5-12.4); PLATELET COUNT 285 K/uL (156-360); RBC DIS.WIDTH-CV 12.9 % (11.8-14.6); RBC DIS.WIDTH-SD 39.3 % (39-53); RED BLOOD COUNT 4.62 M/uL (3.80-5.20); WHITE BLOOD COUNT 11.7 K/uL (4.1-10.2)
[2017-06-01 06:13] LABS: D-DIMER ELISA < 150.00 ng/mLDDU (<230)
[2017-06-01 06:15] LABS: CHLORIDE 103 mEq/L (99-109); POTASSIUM 4.1 mEq/L (3.7-5.4); SODIUM 136 mEq/L (136-147)
[2017-06-01 06:17] LABS: GLUCOSE 129 mg/dL (70-99)
[2017-06-01 06:18] LABS: ANION GAP 10 MEQ/L (2-14)
[2017-06-01 06:21] LABS: GFR ESTIMATE (CALCULATED) > 59 mL/min/
[2017-06-01 06:22] LABS: UREA NITROGEN (BUN) 13 mg/dL (9-23)
[2017-06-01] MEDS ORDERED: LIDODERM 5% P1 PATCH TD (06:28)
[2017-06-01] MEDS ORDERED: VALIUM5 MG PO (06:28)
[2017-06-01 06:57] VITALS: BP 138/74
[2017-06-01] MEDS ORDERED: TYLENOL W/COD1 COMB1 PO (16:12)
[2017-06-01] MEDS ORDERED: CHANTIX1 MG PO (16:12)
[2017-06-01] MEDS ORDERED: BUSPAR15 MG PO (16:14)
[2017-06-02] MEDS ORDERED: ZOFRAN4 MG PO (09:27)
[2017-06-02] MEDS ORDERED: NORCO 5/3251 TABLET PO (12:53)
== END 2017-06-01 06:58 | disposition home or self-care (01) ==
LOC: EME 04:32
PROVIDERS: Nurse Practitioner Family
DX: S39.012A Strain of muscle, fascia and tendon of lower back, initial encounter (principal); X50.9XXA Other and unspecified overexertion or strenuous movements or postures, initial encounter; F17.200 Nicotine dependence, unspecified, uncomplicated; F32.9 Major depressive disorder, single episode, unspecified; F41.9 Anxiety disorder, unspecified; E11.9 Type 2 diabetes mellitus without complications; K21.9 Gastro-esophageal reflux disease without esophagitis; I10 Essential (primary) hypertension; J44.9 Chronic obstructive pulmonary disease, unspecified
CPT/HCPCS: 71020; 80048; 85027; 85379; 93005; 94640; 99281; 99284; J7512

== ENCOUNTER 2017-06-02 08:38 | Day surgery (SDC) | payer OTHER ==
[~2017-06-02] VITALS: Ht 171.4 cm; Wt 109.8 kg
[~2017-06-02 08:38] MED LIST changes: +BUSPAR15 MG PO
[2017-06-02] MEDS ORDERED: ZOFRAN4 MG PO (09:27)
[2017-06-02 09:36] VITALS: BP 136/63
[2017-06-02] MEDS ORDERED: NORCO 5/3251 TABLET PO (12:53)
[2017-06-02 14:22] VITALS: BP 122/71
[2017-06-02 15:04] VITALS: BP 114/59
== END 2017-06-02 15:15 | disposition home or self-care (01) ==
LOC: SDC
PROC: 0DNW4ZZ Release Peritoneum, Percutaneous Endoscopic Approach (ICD-10-PCS; principal; 2017-06-02)
DX: K66.0 Peritoneal adhesions (postprocedural) (postinfection) (principal); K44.9 Diaphragmatic hernia without obstruction or gangrene; R16.0 Hepatomegaly, not elsewhere classified; K76.0 Fatty (change of) liver, not elsewhere classified; F41.8 Other specified anxiety disorders; I10 Essential (primary) hypertension; E11.9 Type 2 diabetes mellitus without complications; J44.9 Chronic obstructive pulmonary disease, unspecified; K57.30 Diverticulosis of large intestine without perforation or abscess without bleeding; E66.3 Overweight; Z68.36 Body mass index [BMI] 36.0-36.9, adult; F17.200 Nicotine dependence, unspecified, uncomplicated; Z88.0 Allergy status to penicillin; Z99.81 Dependence on supplemental oxygen
CPT/HCPCS: J0690; J1100; J1170; J2250; J2405; J2710; J3010

== ENCOUNTER 2017-06-12 10:32 | Emergency (ER) | payer OTHER ==
[~2017-06-12] VITALS: Ht 170.2 cm; Wt 104.3 kg
[~2017-06-12 10:32] MED LIST changes: +NORCO 5/3251 TABLET PO
[2017-06-12 11:34] LABS: HEMATOCRIT 42.4 % (36.0-46.0); MCH 27.8 PG (29.0-34.0); MCV 84.1 FL (83-99); MEAN PLAT.VOLUME 9.3 uM^3 (9.5-12.4); RBC DIS.WIDTH-CV 13.1 % (11.8-14.6); RBC DIS.WIDTH-SD 39.8 % (39-53); RED BLOOD COUNT 5.04 M/uL (3.80-5.20); WHITE BLOOD COUNT 13.3 K/uL (4.1-10.2)
[2017-06-12 11:37] LABS: PLATELET COUNT 382 K/uL (156-360)
[2017-06-12 11:43] LABS: CHLORIDE 103 mEq/L (99-109); POTASSIUM 4.9 mEq/L (3.7-5.4); SODIUM 136 mEq/L (136-147)
[2017-06-12 11:45] LABS: GLUCOSE 119 mg/dL (70-99)
[2017-06-12 11:46] LABS: ANION GAP 12 MEQ/L (2-14)
[2017-06-12 11:48] LABS: GFR ESTIMATE (CALCULATED) > 59 mL/min/
[2017-06-12 11:49] LABS: UREA NITROGEN (BUN) 7 mg/dL (9-23)
[2017-06-12] MEDS ORDERED: TYLENOL REGULA325 MG PO (15:09)
[2017-06-12 15:24] VITALS: BP 143/97
== END 2017-06-12 15:26 | disposition home or self-care (01) ==
LOC: EME 10:32
DX: S30.1XXA Contusion of abdominal wall, initial encounter (principal); W01.0XXA Fall on same level from slipping, tripping and stumbling without subsequent striking against object, initial encounter; Z98.890 Other specified postprocedural states; J44.9 Chronic obstructive pulmonary disease, unspecified; E11.9 Type 2 diabetes mellitus without complications; I10 Essential (primary) hypertension; K21.9 Gastro-esophageal reflux disease without esophagitis; Z86.73 Personal history of transient ischemic attack (TIA), and cerebral infarction without residual deficits; M79.7 Fibromyalgia; F17.200 Nicotine dependence, unspecified, uncomplicated; Z91.040 Latex allergy status; Z88.0 Allergy status to penicillin; Z88.8 Allergy status to other drugs, medicaments and biological substances
CPT/HCPCS: 71020; 74176; 80048; 85027; 99281; 99284; J3010; J7030

== ENCOUNTER 2017-06-23 10:31 | Emergency (ER) | payer OTHER ==
[~2017-06-23] VITALS: Ht 175.3 cm; Wt 107.0 kg
[~2017-06-23 10:31] MED LIST changes: +TYLENOL REGULA325 MG PO
[2017-06-23 12:44] LABS: HEMATOCRIT 36.5 % (36.0-46.0); MCH 28.2 PG (29.0-34.0); MCHC 33.4 G/DL (30.0-36.0); MCV 84.5 FL (83-99); MEAN PLAT.VOLUME 9.4 uM^3 (9.5-12.4); PLATELET COUNT 349 K/uL (156-360); RBC DIS.WIDTH-CV 13.2 % (11.8-14.6); RBC DIS.WIDTH-SD 40.4 % (39-53); RED BLOOD COUNT 4.32 M/uL (3.80-5.20); WHITE BLOOD COUNT 8.4 K/uL (4.1-10.2)
[2017-06-23 13:06] LABS: CHLORIDE 106 mEq/L (99-109); POTASSIUM 4.1 mEq/L (3.7-5.4); SODIUM 141 mEq/L (136-147)
[2017-06-23 13:08] LABS: GLUCOSE 95 mg/dL (70-99); TROP-I INTERPRETATION NEGATIVE; TROPONIN-I < 0.01 ng/mL (0.0-0.30)
[2017-06-23 13:09] LABS: ANION GAP 11 MEQ/L (2-14)
[2017-06-23 13:12] LABS: GFR ESTIMATE (CALCULATED) > 59 mL/min/; UREA NITROGEN (BUN) 7 mg/dL (9-23)
[2017-06-23 13:27] LABS: QUANTITATIVE HCG < 4.0 MIU/ML
[2017-06-23] MEDS ORDERED: ZITHROMAX Z-PA250 MG PO (14:23)
[2017-06-23] MEDS ORDERED: PREDNISONE50 MG PO (14:23)
[2017-06-23 15:36] VITALS: BP 145/92
== END 2017-06-23 15:47 | disposition home or self-care (01) ==
LOC: EME 10:31
PROVIDERS: Emergency Medicine
DX: J44.9 Chronic obstructive pulmonary disease, unspecified (principal); R05 Cough; F17.200 Nicotine dependence, unspecified, uncomplicated; Z71.6 Tobacco abuse counseling; E11.9 Type 2 diabetes mellitus without complications; I10 Essential (primary) hypertension; M79.7 Fibromyalgia; K21.9 Gastro-esophageal reflux disease without esophagitis; Z86.73 Personal history of transient ischemic attack (TIA), and cerebral infarction without residual deficits; Z91.040 Latex allergy status; Z88.0 Allergy status to penicillin; Z88.8 Allergy status to other drugs, medicaments and biological substances
CPT/HCPCS: 71010; 80048; 84484; 84702; 85027; 93005; 94640; 99281; 99285; J2405; J2930

== ENCOUNTER 2017-07-24 19:51 | Emergency (ER) | payer OTHER ==
[~2017-07-24] VITALS: Ht 170.2 cm; Wt 104.1 kg
[~2017-07-24 19:51] MED LIST changes: +ZITHROMAX Z-PA250 MG PO
[2017-07-24 20:01] VITALS: BP 124/73
[2017-07-24 20:45] LABS: EOSINOPHIL (%) 1.7 % (0-5); EOSINOPHIL COUNT 0.2 K/uL (0-0.3); HEMATOCRIT 39.4 % (36.0-46.0); IMMATURE GRANULOCYTE (%) 0.9 % (0.0-0.7); IMMATURE GRANULOCYTE COUNT 0.1 K/uL; INSTRUMENT ABS NEUTROPHIL CT 7.7 K/uL; LYMPHOCYTE COUNT 2.9 K/uL (1.0-2.8); MCH 28.4 PG (29.0-34.0); MCV 86.2 FL (83-99); MONOCYTE (%) 4.7 % (3-12); MONOCYTE COUNT 0.5 K/uL (0-0.8); NEUTROPHIL (%) 66.9 % (45-76); NEUTROPHIL COUNT 7.7 K/uL (1.8-6.4); RBC DIS.WIDTH-CV 13.2 % (11.8-14.6); RBC DIS.WIDTH-SD 41.4 % (39-53); RED BLOOD COUNT 4.57 M/uL (3.80-5.20); WHITE BLOOD COUNT 11.5 K/uL (4.1-10.2)
[2017-07-24 20:58] LABS: CHLORIDE 105 mEq/L (99-109); POTASSIUM 3.9 mEq/L (3.7-5.4); SODIUM 137 mEq/L (136-147)
[2017-07-24 21:00] LABS: GLUCOSE 127 mg/dL (70-99)
[2017-07-24 21:01] LABS: ANION GAP 9 MEQ/L (2-14)
[2017-07-24 21:03] LABS: GFR ESTIMATE (CALCULATED) > 59 mL/min/
[2017-07-24 21:04] LABS: UREA NITROGEN (BUN) 13 mg/dL (9-23)
[2017-07-24 22:28] LABS: PLATELET CLUMPS PRESENT - PLATELET COUNT APPEARS ADQ.; PLATELET COUNT UNABLE TO REPORT K/uL (156-360)
== END 2017-07-24 22:26 | disposition left against medical advice (07) ==
LOC: EME 19:51
DX: R09.89 Other specified symptoms and signs involving the circulatory and respiratory systems (principal); M54.9 Dorsalgia, unspecified; Z53.21 Procedure and treatment not carried out due to patient leaving prior to being seen by health care provider
CPT/HCPCS: 71020; 80048; 83605; 85025; 99281; 99283

== ENCOUNTER 2017-08-06 11:13 | Emergency (ER) | payer OTHER ==
[~2017-08-06] VITALS: Ht 172.7 cm; Wt 110.0 kg
[2017-08-06 11:36] VITALS: BP 135/103
[2017-08-06] MEDS ORDERED: LORTAB 5-325 M1 EACH PO (14:12)
[2017-08-06] MEDS ORDERED: FLEXERIL10 MG PO (14:12)
== END 2017-08-06 14:43 | disposition home or self-care (01) ==
LOC: EME 11:13
DX: M17.11 Unilateral primary osteoarthritis, right knee (principal); M25.461 Effusion, right knee; G89.29 Other chronic pain; M25.561 Pain in right knee; J44.9 Chronic obstructive pulmonary disease, unspecified; F17.210 Nicotine dependence, cigarettes, uncomplicated; F32.9 Major depressive disorder, single episode, unspecified; F41.9 Anxiety disorder, unspecified; Z88.0 Allergy status to penicillin; Z91.040 Latex allergy status; Z88.6 Allergy status to analgesic agent; Z88.5 Allergy status to narcotic agent
CPT/HCPCS: 73564; 99281; 99284; J3010

== ENCOUNTER 2017-09-09 16:01 | Emergency (ER) | payer OTHER ==
[~2017-09-09] VITALS: Ht 170.2 cm; Wt 103.7 kg
[~2017-09-09 16:01] MED LIST changes: +FLEXERIL10 MG PO
[2017-09-09 17:04] LABS: HEMATOCRIT 41.3 % (36.0-46.0); HEMOGLOBIN 14.2 G/DL (11.9-15.5); MCH 29.1 PG (29.0-34.0); MCHC 34.4 G/DL (30.0-36.0); MCV 84.6 FL (83-99); PLATELET COUNT 341 K/uL (156-360); RBC DIS.WIDTH-CV 12.5 % (11.8-14.6); RBC DIS.WIDTH-SD 38.5 % (39-53); RED BLOOD COUNT 4.88 M/uL (3.80-5.20); WHITE BLOOD COUNT 10.5 K/uL (4.1-10.2)
[2017-09-09 17:17] LABS: CHLORIDE 104 mEq/L (99-109); POTASSIUM 4.1 mEq/L (3.7-5.4); SODIUM 134 mEq/L (136-147)
[2017-09-09 17:18] LABS: GLUCOSE 109 mg/dL (70-99)
[2017-09-09 17:22] LABS: CREATININE 0.8 mg/dL (0.6-1.3); GFR ESTIMATE (CALCULATED) > 59 mL/min/
[2017-09-09 17:23] LABS: UREA NITROGEN (BUN) 8 mg/dL (9-23)
[2017-09-09 17:25] LABS: LIPASE 25 U/L (1.0-51.0); TROP-I INTERPRETATION NEGATIVE; TROPONIN-I < 0.01 ng/mL (0.0-0.30)
[2017-09-09] MEDS ORDERED: TESSALON200 MG PO (18:32)
[2017-09-09] MEDS ORDERED: PREDNISONE20 MG PO (18:32)
[2017-09-09 18:45] VITALS: BP 124/83
== END 2017-09-09 18:46 | disposition home or self-care (01) ==
LOC: EME 16:01
DX: J44.1 Chronic obstructive pulmonary disease with (acute) exacerbation (principal); R07.89 Other chest pain; R10.11 Right upper quadrant pain; R11.0 Nausea; M54.2 Cervicalgia; Z90.49 Acquired absence of other specified parts of digestive tract; Z95.5 Presence of coronary angioplasty implant and graft; Z86.73 Personal history of transient ischemic attack (TIA), and cerebral infarction without residual deficits; F17.200 Nicotine dependence, unspecified, uncomplicated
CPT/HCPCS: 71046; 80048; 81003; 83690; 84484; 85027; 93005; 99281; 99284; J7512

== ENCOUNTER 2017-09-30 09:38 | Inpatient (IN) | payer OTHER ==
[~2017-09-30] VITALS: Ht 170.2 cm; Wt 104.9 kg
[~2017-09-30 09:38] MED LIST changes: +TESSALON200 MG PO
[2017-09-30 10:11] LABS: HEMATOCRIT 43.1 % (36.0-46.0); HEMOGLOBIN 14.7 G/DL (11.9-15.5); MCH 28.9 PG (29.0-34.0); MCHC 34.1 G/DL (30.0-36.0); MCV 84.8 FL (83-99); PLATELET COUNT 383 K/uL (156-360); RBC DIS.WIDTH-CV 12.8 % (11.8-14.6); RBC DIS.WIDTH-SD 39.7 % (39-53); RED BLOOD COUNT 5.08 M/uL (3.80-5.20); WHITE BLOOD COUNT 18.3 K/uL (4.1-10.2)
[2017-09-30 10:21] LABS: CHLORIDE 99 mEq/L (99-109); SODIUM 137 mEq/L (136-147)
[2017-09-30 10:23] LABS: GLUCOSE 141 mg/dL (70-99)
[2017-09-30 10:27] LABS: CREATININE 0.9 mg/dL (0.6-1.3); GFR ESTIMATE (CALCULATED) > 59 mL/min/
[2017-09-30 10:28] LABS: UREA NITROGEN (BUN) 11 mg/dL (9-23)
[2017-09-30 11:47] LABS: APPEARANCE CLEAR ((CLEAR)); BILIRUBIN NEGATIVE; BLOOD NEGATIVE; COLOR STRAW ((YELLOW)); GLUCOSE (STRIP) NEGATIVE; KETONES NEGATIVE; LEUKOCYTES NEGATIVE; NITRITE NEGATIVE; PROTEIN (STRIP) NEGATIVE; SPECIFIC GRAVITY 1.006 (1.000-1.030); UCUL ADDED? NO; UROBILINOGEN 0.2 MG/DL (0.2-1.0)
[2017-09-30] MEDS ORDERED: TYLENOL EXTRA500 MG PO (13:52)
[2017-09-30] MEDS ORDERED: HYOSCYAMINE0.125 MG PO (13:57)
[2017-09-30] MEDS ORDERED: KENALOG,ARISTOC80 GM TP (13:58)
[2017-09-30] MEDS ORDERED: NYSTATIN15 GM TP (13:58)
[2017-09-30 14:49] LABS: TROP-I INTERPRETATION NEGATIVE; TROPONIN-I < 0.01 ng/mL (0.0-0.30)
[2017-09-30 15:00] VITALS: BP 135/62
[2017-09-30 19:31] VITALS: BP 154/73
[2017-09-30 20:20] LABS: TROP-I INTERPRETATION NEGATIVE; TROPONIN-I < 0.01 ng/mL (0.0-0.30)
[2017-10-01 00:24] VITALS: BP 125/60
[2017-10-01 03:01] LABS: TROP-I INTERPRETATION NEGATIVE; TROPONIN-I < 0.01 ng/mL (0.0-0.30)
[2017-10-01 03:52] VITALS: BP 112/60
[2017-10-01 08:00] VITALS: BP 142/70
[2017-10-01 09:33] LABS: MCH 28.4 PG (29.0-34.0); MCHC 33.4 G/DL (30.0-36.0); PLATELET COUNT 292 K/uL (156-360); RBC DIS.WIDTH-CV 12.6 % (11.8-14.6); RBC DIS.WIDTH-SD 39.1 % (39-53); RED BLOOD COUNT 4.47 M/uL (3.80-5.20); WHITE BLOOD COUNT 14.7 K/uL (4.1-10.2)
[2017-10-01 09:34] LABS: HEMOGLOBIN 12.7 G/DL (11.9-15.5)
[2017-10-01 09:56] LABS: CHLORIDE 101 MEQ/L (99-109); CREATININE 0.6 MG/DL (0.6-1.3); GFR ESTIMATE (CALCULATED) > 59 mL/min/; GLUCOSE 181 mg/dL (70-99); POTASSIUM 4.4 MEQ/L (3.7-5.4); SODIUM 136 MEQ/L (136-147); UREA NITROGEN (BUN) 10 mg/dL (9-23)
[2017-10-01 12:08] VITALS: BP 133/76
[2017-10-01 15:26] VITALS: BP 131/83
[2017-10-01 19:46] VITALS: BP 139/72
== END 2017-10-01 20:26 | disposition left against medical advice (07) | DRG 192 ==
LOC: EME 09:38 → EDOF 13:14 → 5WEST 13:14 → ENRESERV 13:15 → EDOF 13:25 → ENRESERV 13:33 → 5WEST 14:37
PROVIDERS: Internal Medicine; Nurse Practitioner Adult Health; Nurse Practitioner Family
DX: J44.1 Chronic obstructive pulmonary disease with (acute) exacerbation (principal); I10 Essential (primary) hypertension; E11.9 Type 2 diabetes mellitus without complications; G89.29 Other chronic pain; M54.9 Dorsalgia, unspecified; F17.200 Nicotine dependence, unspecified, uncomplicated; M54.16 Radiculopathy, lumbar region; F41.9 Anxiety disorder, unspecified; F32.9 Major depressive disorder, single episode, unspecified; I25.10 Atherosclerotic heart disease of native coronary artery without angina pectoris; D72.829 Elevated white blood cell count, unspecified; R05 Cough; E78.5 Hyperlipidemia, unspecified; M79.7 Fibromyalgia; K21.9 Gastro-esophageal reflux disease without esophagitis; Z90.710 Acquired absence of both cervix and uterus; Z90.49 Acquired absence of other specified parts of digestive tract; Z86.73 Personal history of transient ischemic attack (TIA), and cerebral infarction without residual deficits; Z79.899 Other long term (current) drug therapy
CPT/HCPCS: 71046; 72100; 72131; 72148; 80048; 81003; 82948; 83605; 84484; 85027; 87040; 87502; 93005; 94640; 94640 76; 94799; 99202; 99281; 99285; G0378; J0295; J1650; J1815; J2930; J7030; J7050

== ENCOUNTER 2018-01-17 15:30 | Emergency (ER) | payer OTHER ==
[~2018-01-17] VITALS: Ht 170.2 cm; Wt 105.0 kg
[~2018-01-17 15:30] MED LIST changes: +HYOSCYAMINE0.125 MG PO; +KENALOG,ARISTOC80 GM TP; +TYLENOL EXTRA500 MG PO
[2018-01-17 16:02] LABS: APPEARANCE CLEAR ((CLEAR)); BILIRUBIN NEGATIVE; BLOOD NEGATIVE; COLOR STRAW ((YELLOW)); GLUCOSE (STRIP) NEGATIVE; KETONES NEGATIVE; LEUKOCYTES NEGATIVE; NITRITE NEGATIVE; PROTEIN (STRIP) NEGATIVE; SPECIFIC GRAVITY 1.004 (1.000-1.030); UCUL ADDED? NO; UROBILINOGEN 0.2 MG/DL (0.2-1.0)
[2018-01-17 16:06] LABS: HEMATOCRIT 39.4 % (36.0-46.0); HEMOGLOBIN 13.5 G/DL (11.9-15.5); MCH 30.3 PG (29.0-34.0); MCHC 34.3 G/DL (30.0-36.0); MCV 88.3 FL (83-99); PLATELET COUNT 280 K/uL (156-360); RBC DIS.WIDTH-CV 12.1 % (11.8-14.6); RBC DIS.WIDTH-SD 38.9 % (39-53); RED BLOOD COUNT 4.46 M/uL (3.80-5.20)
[2018-01-17 16:19] LABS: CHLORIDE 103 mEq/L (99-109); POTASSIUM 3.6 mEq/L (3.7-5.4); SODIUM 138 mEq/L (136-147)
[2018-01-17 16:20] LABS: GLUCOSE 144 mg/dL (70-99)
[2018-01-17 16:24] LABS: CREATININE 0.8 mg/dL (0.6-1.3); GFR ESTIMATE (CALCULATED) > 59 mL/min/
[2018-01-17 16:25] LABS: UREA NITROGEN (BUN) 6 mg/dL (9-23)
[2018-01-17 16:32] LABS: TROP-I INTERPRETATION NEGATIVE; TROPONIN-I < 0.01 ng/mL (0.0-0.30)
[2018-01-17] MEDS ORDERED: SOMA350 MG PO (17:21)
[2018-01-17 18:20] VITALS: BP 118/68
== END 2018-01-17 18:25 | disposition home or self-care (01) ==
LOC: EME 15:30
DX: R07.9 Chest pain, unspecified (principal); M54.9 Dorsalgia, unspecified; G89.29 Other chronic pain; R10.32 Left lower quadrant pain; K52.9 Noninfective gastroenteritis and colitis, unspecified; J44.1 Chronic obstructive pulmonary disease with (acute) exacerbation; E11.9 Type 2 diabetes mellitus without complications; I10 Essential (primary) hypertension; Z82.49 Family history of ischemic heart disease and other diseases of the circulatory system; F17.200 Nicotine dependence, unspecified, uncomplicated; Z86.73 Personal history of transient ischemic attack (TIA), and cerebral infarction without residual deficits; F41.9 Anxiety disorder, unspecified; Z79.4 Long term (current) use of insulin; F32.9 Major depressive disorder, single episode, unspecified; K21.9 Gastro-esophageal reflux disease without esophagitis; M79.7 Fibromyalgia; Z88.6 Allergy status to analgesic agent; Z88.5 Allergy status to narcotic agent; Z88.0 Allergy status to penicillin; Z91.040 Latex allergy status
CPT/HCPCS: 71046; 80048; 81003; 84484; 85027; 93005; 99281; 99285; J3010

== ENCOUNTER 2018-03-01 14:08 | Observation (INO) | payer OTHER ==
[~2018-03-01] VITALS: Ht 172.7 cm; Wt 103.6 kg
[2018-03-01 15:14] LABS: HEMATOCRIT 39.3 % (36.0-46.0); HEMOGLOBIN 13.7 G/DL (11.9-15.5); MCH 29.8 PG (29.0-34.0); MCHC 34.9 G/DL (30.0-36.0); MCV 85.6 FL (83-99); PLATELET COUNT 322 K/uL (156-360); RBC DIS.WIDTH-CV 12.7 % (11.8-14.6); RBC DIS.WIDTH-SD 39.3 % (39-53); RED BLOOD COUNT 4.59 M/uL (3.80-5.20); WHITE BLOOD COUNT 10.9 K/uL (4.1-10.2)
[2018-03-01 15:23] LABS: CHLORIDE 104 mEq/L (99-109); POTASSIUM 3.8 mEq/L (3.7-5.4); SODIUM 137 mEq/L (136-147)
[2018-03-01 15:25] LABS: GLUCOSE 112 mg/dL (70-99)
[2018-03-01 15:29] LABS: CREATININE 0.8 mg/dL (0.6-1.3); GFR ESTIMATE (CALCULATED) > 59 mL/min/
[2018-03-01 15:30] LABS: UREA NITROGEN (BUN) 12 mg/dL (9-23)
[2018-03-01 15:35] LABS: TROP-I INTERPRETATION NEGATIVE; TROPONIN-I < 0.01 ng/mL (0.0-0.30)
[2018-03-01 17:15] LABS: MAGNESIUM 2.4 mg/dL (1.3-2.7)
[2018-03-01 17:17] LABS: D-DIMER ELISA < 150.00 ng/mLDDU (<230)
[2018-03-01 17:22] LABS: CREATINE KINASE 66 IU/L (1-294); TOTAL CK 66 IU/L (1-294)
[2018-03-01 17:31] LABS: CKMB RELATIVE INDEX 1.5 (0.0-3.9)
[2018-03-01 17:58] LABS: C-REACTIVE PROTEIN 16.1 MG/L (0-10); HDL CHOLESTEROL 37 MG/DL (Desirable>=50); LDL CHOLESTEROL 165 mg/dL (Desirable<100); NON-HDL CHOLESTEROL 204 mg/dL (Desirable<160); TOTAL CHOLESTEROL 241 mg/dL (Desirable<200); TRIGLYCERIDES 194 MG/DL (Normal: <150)
[2018-03-01] MEDS ORDERED: XANAX0.25 MG PO (18:19)
[2018-03-01] MEDS ORDERED: CARISOPRODOL350 MG PO (18:25)
[2018-03-01] MEDS ORDERED: DESYREL 150 MG150 MG PO (18:26)
[2018-03-01 18:28] VITALS: BP 111/69
[2018-03-01] MEDS ORDERED: BUSPAR10 MG PO (18:28)
[2018-03-01] MEDS ORDERED: ALPRAZOLAM1 MG PO (18:29)
[2018-03-01] MEDS ORDERED: ALPRAZOLAM0.25 M2 PO (18:31)
[2018-03-01] MEDS ORDERED: ONDANSETRON HCL4 MG PO (18:33)
[2018-03-01] MEDS ORDERED: CYANOCOBAL1000 MCG/2 IM (18:37)
[2018-03-01 22:15] LABS: TROP-I INTERPRETATION NEGATIVE; TROPONIN-I < 0.01 ng/mL (0.0-0.30)
[2018-03-01 23:56] VITALS: BP 95/54
[2018-03-02 03:00] VITALS: BP 116/58
[2018-03-02 04:25] VITALS: BP 108/59
[2018-03-02 05:50] LABS: TROP-I INTERPRETATION NEGATIVE; TROPONIN-I < 0.01 ng/mL (0.0-0.30)
[2018-03-02 05:59] LABS: ALBUMIN 3.7 G/DL (3.2-4.8); ALKALINE PHOSPHATASE 90 IU/L (3-129); ALT (GPT) 10 IU/L (3-49); AST (GOT) 11 IU/L (2-34); CHLORIDE 104 MEQ/L (99-109); CREATININE 0.7 MG/DL (0.6-1.3); GFR ESTIMATE (CALCULATED) > 59 mL/min/; GLUCOSE 111 mg/dL (70-99); POTASSIUM 3.7 MEQ/L (3.7-5.4); SODIUM 138 MEQ/L (136-147); TOTAL BILIRUBIN 0.4 MG/DL (0.0-1.0); TOTAL PROTEIN 6.3 G/DL (6.4-8.3); UREA NITROGEN (BUN) 11 mg/dL (9-23)
[2018-03-02 08:40] VITALS: BP 118/61
[2018-03-02 11:17] VITALS: BP 114/53
[2018-03-02] MEDS ORDERED: NICOTINE PATCH1 EAC1 TD (14:32)
[2018-03-02] MEDS ORDERED: ASPIR-LOW81 MG PO (14:33)
[2018-03-02] MEDS ORDERED: ATORVASTATIN CA80 MG PO (14:33)
[2018-03-02] MEDS ORDERED: FAMOTIDINE20 MG PO (14:35)
[2018-03-02] MEDS ORDERED: WELLBUTRIN SR150 MG PO (15:00)
== END 2018-03-02 15:00 | disposition home or self-care (01) ==
LOC: EME 14:08 → 4SOUTH 16:31 → EDOF 16:31 → ENRESERV 16:40 → EDOF 18:17 → 4SOUTH 18:17
PROVIDERS: Internal Medicine
DX: R07.89 Other chest pain (principal); J44.9 Chronic obstructive pulmonary disease, unspecified; E11.9 Type 2 diabetes mellitus without complications; I95.9 Hypotension, unspecified; R00.2 Palpitations; F17.210 Nicotine dependence, cigarettes, uncomplicated; I10 Essential (primary) hypertension; G43.909 Migraine, unspecified, not intractable, without status migrainosus; E66.9 Obesity, unspecified; Z68.34 Body mass index [BMI] 34.0-34.9, adult; G47.00 Insomnia, unspecified; F41.9 Anxiety disorder, unspecified; Z98.1 Arthrodesis status; Z90.49 Acquired absence of other specified parts of digestive tract; Z90.710 Acquired absence of both cervix and uterus; Z90.721 Acquired absence of ovaries, unilateral; Z82.49 Family history of ischemic heart disease and other diseases of the circulatory system; Z80.3 Family history of malignant neoplasm of breast; Z88.6 Allergy status to analgesic agent; Z91.040 Latex allergy status; Z91.041 Radiographic dye allergy status
CPT/HCPCS: 71046; 80048; 80053; 80061; 82550; 82550 91; 82553; 83735; 83880; 84443; 84484; 85027; 85379; 85651; 86140; 93005; 93306; 94640; 94799; 99281; 99285; G0378; J1650; J2270

== ENCOUNTER 2018-03-17 20:48 | Emergency (ER) | payer OTHER ==
[~2018-03-17] VITALS: Ht 170.2 cm; Wt 110.4 kg
[~2018-03-17 20:48] MED LIST changes: +ALPRAZOLAM0.25 M2 PO; +ASPIR-LOW81 MG PO; +ATORVASTATIN CA80 MG PO; +CARISOPRODOL350 MG PO; +CYANOCOBAL1000 MCG/2 IM; +DESYREL 150 MG150 MG PO; +FAMOTIDINE20 MG PO; +NICOTINE PATCH1 EAC1 TD; +ONDANSETRON HCL4 MG PO; +WELLBUTRIN SR150 MG PO; +XANAX0.25 MG PO
[2018-03-18 01:24] VITALS: BP 125/103
== END 2018-03-18 01:25 | disposition home or self-care (01) ==
LOC: EME 20:48 → EXP 20:48
DX: M17.11 Unilateral primary osteoarthritis, right knee (principal); M71.21 Synovial cyst of popliteal space [Baker], right knee; G89.29 Other chronic pain; F17.200 Nicotine dependence, unspecified, uncomplicated; Z91.040 Latex allergy status; Z91.041 Radiographic dye allergy status; Z88.6 Allergy status to analgesic agent; Z88.0 Allergy status to penicillin; Z88.5 Allergy status to narcotic agent; Z88.1 Allergy status to other antibiotic agents
CPT/HCPCS: 73564; 93971; J3010

== ENCOUNTER 2018-03-18 12:19 | Emergency (ER) | payer OTHER ==
[~2018-03-18] VITALS: Ht 170.2 cm; Wt 110.4 kg
[2018-03-18 15:18] VITALS: BP 163/98
== END 2018-03-18 15:18 | disposition home or self-care (01) ==
LOC: EME 12:19
DX: M71.21 Synovial cyst of popliteal space [Baker], right knee (principal); Z88.6 Allergy status to analgesic agent; Z88.5 Allergy status to narcotic agent; Z88.0 Allergy status to penicillin; Z91.040 Latex allergy status
CPT/HCPCS: 99281; 99284; J3010